=== PATIENT | male | born 1980 | race African-American/Black ===

== ENCOUNTER 2022-09-27 15:13 | Emergency (ER) | payer OTHER, SELFPAY ==
--- NOTE | ~2022-09-27 | XR_ITS ---
EXAMINATION: XR chest 2V Exam Date/Time: 09/27/2022 15:38 DIAMOND SIZER HISTORY: Chest Pain, tightness, congestion Comparison: None available. RESULT: Lines, tubes, and devices: None. Lungs and pleura: Clear. Cardiomediastinal silhouette: Calcified hilar node, otherwise unremarkable. Other: No acute osseous or upper abdominal finding. IMPRESSION: No acute cardiopulmonary process. Reviewed, dictated and finalized at location K. OND SIZER
[2022-09-27 15:15] VITALS: BP 143/80; PULSE 72; RESP 18; TEMP 36.3; O2SAT 99
--- NOTE | 2022-09-27 15:19 | ECG_ITS ---
Measurements Intervals [place] Rate: 71 P: 60 MO: 166 QRS: 30 QRSD: 101 T: 45 QT: 368 QTc: 401 Interpretive Statements SINUS RHYTHM NORMAL ECG NO PREVIOUS ECG AVAILABLE FOR COMPARISON Electronically Signed On 09-27-2022 17:03:43 [employer]IOR [employer] ENGINE[employer] by Salo Burnette M.D.
[2022-09-27 15:36] LABS: Basophils Absolute Auto 0.1 K/mm3 (0.0-0.1); Basophils Percent Auto 0.6 % (0.2-1.2); Eosinophils Absolute Auto 0.3 K/mm3 (0-0.3); Eosinophils Percent Auto 2.9 % (0-4.4); Hematocrit 37.2 % (42.0-52.0); Hemoglobin 12.3 g/dL (14.0-18.0); Immature Granulocyte Absolute 0.02 K/mm3 (0.00-0.031); Immature Granulocyte Percent A 0.2 % (0-0.5); Lymphocytes Percent Auto 43.5 % (18.3-44.2); Mean Corpuscular HGB Conc 33.1 g/dl (32-36); Mean Corpuscular Hemoglobin 29.8 pg (26-34); Mean Corpuscular Volume 90.1 fl (80-100); Mean Platelet Volume 10.3 fl (7.4-10.4); Monocytes Absolute Auto 0.7 K/mm3 (0.1-0.6); Monocytes Percent Auto 7.7 % (2.6-8.5); Neutrophils Percent Auto 45.1 % (45.5-73.1); Platelet Count Result 321 k/mm3 (150-375); Red Blood Count 4.13 M/mm3 (4.6-6.20); Red Cell Distribution Width 14.6 % (11.5-14.5); White Blood Count 8.7 K/mm3 (4.5-10.0)
[2022-09-27 15:46] LABS: Alanine Aminotransferase 25 U/L (6-50); Albumin Level 4.6 g/dL (3.5-5.1); Alkaline Phosphatase 83 U/L (38-126); Anion Gap 5 mmol/L (8-16); Aspartate Amino Transferase 30 U/L (17-59); Bilirubin,Total 0.4 mg/dL (0.2-1.3); Blood Urea Nitrogen 15 mg/dL (9-20); Calcium 9.2 mg/dL (8.4-10.2); Carbon Dioxide 27 mmol/L (22-30); Chloride 105 mmol/L (98-107); Estimated CRCL calculation 119 ml/min; Estimated Glomerular Filt Rate > 60; Glucose 99 mg/dL (65-110); Lipase 91 U/L (23-300); Sodium 137 mmol/L (137-145)
[2022-09-27 15:49] LABS: Prothrombin Time 12.9 Seconds (11.1-14.7)
[2022-09-27 15:50] LABS: Partial Thromboplastin Time 31.8 SECONDS (22.3-36.8)
[2022-09-27 15:58] LABS: Troponin I < 0.012 ng/mL (0.000-0.034)
[2022-09-27 17:36] VITALS: O2SAT 100
--- NOTE | 2022-09-27 18:12 | ED.CHESTPAIN ---
HPI - Chest Pain General Chief Complaint: Chest Pain Stated Complaint: chest tightness Time Seen by Provider: 09/27/22 17:39 History of Present Illness HPI narrative: This is a 42-year-old male who comes into the emergency department for chief complaint of chest tightness ongoing for 3 weeks. Also reports cough, wheezing, shortness of breath. He does note history of asthma as a kid. 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 Also notes some sore throat and malaise. The chest pain is not associated with exertion and described as a tightness. Is associate the pain with cough. Denies fevers, chills, abdominal pain, nausea, vomiting, weakness, hemoptysis, headedness, diaphoresis. Related Data Allergies Allergy/AdvReac Type Severity Reaction Status Date / Time No Known Allergies Allergy Verified 09/27/22 15:18 Review of Systems Review of Systems: CONSTITUTIONAL: Denies fever, chills, or sweats. EYES: Denies visual changes, redness, or discharge. ENT: Denies rhinorrhea, congestion, or otalgia. Endorses sore throat. CARDIOVASCULAR: Endorses chest tightness. Denies palpitations, or edema. RESPIRATORY: Endorses cough and dyspnea. Endorses wheezing. GASTROINTESTINAL: Denies abdominal pain, nausea, vomiting, or diarrhea. GENITOURINARY: Denies dysuria or hematuria. SKIN: Denies rash or itching. MUSCULOSKELETAL: Denies back pain, joint pain, or myalgia. NEUROLOGIC: Denies headache, numbness, dizziness, or weakness. PSYCHIATRIC: Denies anxiety or depression. Exam Narrative: GENERAL: Well-appearing, well-nourished, and in no acute distress. HEAD: Normocephalic, atraumatic. EYES: PERRLA and EOMI. ENT: Nares clear, no rhinorrhea or epistaxis. Mucous membranes moist. Oropharynx without tonsillar hypertrophy exudate or other lesions. Right TM intact. Left TM unable to visualize due to cerumen impaction. NECK: Supple. No adenopathy or masses. CHEST: No respiratory distress. Clear to auscultation. No rales or rhonchi. End expiratory wheezes present bilaterally HEART: Regular rate and rhythm. No murmur heard. Normal peripheral pulses. ABDOMEN: Soft, nontender, nondistended, normal active bowel sounds. EXTREMITIES: Normal range of motion. No edema. SKIN: Warm, dry, no rash. NEURO: Alert and oriented x3. No focal deficits. PSYCH: Normal mood and affect. Course Vital Signs Vital signs: Vital Signs Temperature 97.4 F L 09/27/22 15:15 Pulse Rate 72 09/27/22 15:15 Respiratory Rate 18 09/27/22 15:15 Blood Pressure 143/80 H 09/27/22 15:15 Pulse Oximetry 99 09/27/22 15:15 Oxygen Delivery Room Air 09/27/22 15:15 Temperature 97.4 F L 09/27/22 15:15 Pulse Rate 68 09/27/22 19:20 Respiratory Rate 16 09/27/22 19:20 Blood Pressure 130/89 09/27/22 19:20 Pulse Oximetry 100 09/27/22 19:20 Oxygen Delivery Room Air 09/27/22 17:36 MDM - Chest Pain MDM Narrative Medical decision making narrative: This is a 42-year-old male who presents for chest tightness ongoing for about 3-1/2 weeks. There is no exertional component to the chest pain. Heart score is 1. Lab work-up is grossly unremarkable. Troponin negative. His symptoms are consistent with viral bronchitis. Exam shows bilateral wheezes. He was given a nebulized dose of albuterol which provided some symptomatic relief. Breath sounds were improved after this treatment. ECG shows sinus rhythm with no acute ischemic changes. Chest x-ray shows No acute cardiopulmonary process.. He is PERC negative. Vital stable during the entirety of his visit. States he has a past diagnosis of asthma and has been out of his albuterol inhaler for a long time. We will give him a new prescription for albuterol puffer as well as guaifenesin for cough. Return precautions given for exertional chest pain, and other signs of ACS. Recommended that he quit smoking. Supporti
[2022-09-27 18:25] VITALS: PULSE 65; RESP 16
[2022-09-27] MEDS: ALBUTEROL SULFATE NEB 2.5 MG/3 ML INH INHALATION (18:25)
[2022-09-27 18:31] VITALS: PULSE 60; RESP 16
--- NOTE | 2022-09-27 19:14 | PC.NURSE ---
1909 Assumed pt care from KAYLENE Marinelli
[2022-09-27 19:20] VITALS: BP 130/89; PULSE 68; RESP 16; O2SAT 100
== END 2022-09-27 19:20 | disposition home or self-care (01) ==
PROVIDERS: Emergency Medicine; Emergency Provider Physician Assistant
DX: J45.909 Unspecified asthma, uncomplicated (principal)
CPT/HCPCS: 36415; 71046; 80053; 83690; 84484; 85025; 85610; 85730; 93005; 94640; 99284

== ENCOUNTER 2024-06-11 17:14 | Emergency (ER) | payer OTHER, SELFPAY ==
[2024-06-11 17:17] VITALS: BP 139/89; PULSE 93; RESP 19; TEMP 36.4; O2SAT 97
--- NOTE | 2024-06-11 17:28 | ED.BACK ---
HPI - Back Pain/Injury General Chief Complaint: Back Pain/Injury Stated Complaint: lower back pain Time Seen by Provider: 06/11/24 17:28 Source: patient Mode of arrival: ambulatory History of Present Illness HPI Narrative: 44 YEARS OLD MALE DROVE HIMSELF TO THE EMERGENCY ROOM COMPLAINING OF SEVERE SHARP STABBING PAIN ACROSS THE LOWER BACK WITH NUMBNESS RADIATING TO LOWER EXTREMITY BILATERALLY. PATIENT DENIES BOWEL DYSFUNCTION, BLADDER DYSFUNCTION, ALTERED SENSATION, FOCAL WEAKNESS, OR SADDLE NUMBNESS, PATIENT DENIES ANY FEVER, CHILLS, OR TRAUMA PATIENT IS STATUS POST LOWER BACK SURGERY 12 DAYS AGO AT [facility] Related Data Allergies Allergy/AdvReac Type Severity Reaction Status Date / Time No Known Allergies Allergy Verified 06/11/24 17:30 Review of Systems Review of Systems: All systems reviewed & are unremarkable except as noted in HPI and below Exam Narrative: GENERAL APPEARANCE: WELL-DEVELOPED, WELL-NOURISHED SKIN: NORMAL COLOR HEAD: NORMOCEPHALIC, NONTRAUMATIC EYES: CLEAR CONJUNCTIVA ENT: OROPHARYNX NORMAL, EARS NORMAL, NOSE NORMAL NECK: SUPPLE, NONTENDER CHEST AND RESPIRATORY: AIRWAY PATENT, NO RESPIRATORY DISTRESS, NO ACCESSORY MUSCLE USE HEART: REGULAR RATE/RHYTHM ABDOMEN: SOFT, NONTENDER, NO ORGANOMEGALY, QUIET BOWEL SOUNDS VASCULAR: NORMAL PERIPHERAL PULSES, NORMAL CAPILLARY REFILL. MUSCULOSKELETAL: NORMAL RANGE OF MOTION, NONTENDER BACK NEUROLOGIC: ALERT AND ORIENTED ?3, POSITIVE STRAIGHT LEG RAISING TEST BILATERALLY MORE SIGNIFICANT ON THE RIGHT LOWER EXTREMITY Course Consultations Consultation #1: DR CHACON [facility] OF [facility] WHO ACCEPTED PATIENT TRANSFER Date: 06/11/24 Time: 18:50 Vital Signs Vital signs: Vital Signs Temperature 36.4 C 06/11/24 17:17 Pulse Rate 93 06/11/24 17:17 Respiratory Rate 19 06/11/24 17:17 Blood Pressure 139/89 06/11/24 17:17 Pulse Oximetry 97 06/11/24 17:17 Temperature 36.4 C 06/11/24 17:17 Pulse Rate 93 06/11/24 17:17 Respiratory Rate 19 06/11/24 17:17 Blood Pressure 139/89 06/11/24 17:17 Pulse Oximetry 97 06/11/24 17:17 MDM - Back Pain/Injury MDM Narrative Medical decision making narrative: PATIENT STATUS POST LOWER BACK SURGERY 12 DAYS AGO, COMPLAINING OF NEW SHARP STABBING PAIN STARTED SMOKING PIPE LINER AND NEW NUMBNESS OF THE LEFT LOWER EXTREMITY. HE IS TELLING ME THAT HE USED TO HAVE NUMBNESS OF THE RIGHT LOWER EXTREMITY PRIOR TO SURGERY. TODAY NUMBNESS IS BILATERALLY. VITAL SIGNS ARE STABLE PHYSICAL EXAMINATION CONSISTENT WITH BILATERAL LUMBAR RADICULOPATHY DIFFERENTIAL DIAGNOSIS INCLUDE BULGING DISC, HERNIATED DISC, EDEMA SECONDARY TO SURGERY PATIENT RECEIVED 10 MG OF DECADRON IV, 0.5 MG OF DILAUDID IV, 4 MG ZOFRAN IV PRIOR TO TRANSFER. TRANSFERRED TO [facility] ED, DISCUSSED WITH THE EMERGENCY ROOM PHYSICIAN DR. CHACON Differential Diagnosis Differential diagnosis: Likely other ( ABOVE) Critical Care Time Critical Care Time Critical Care Time: No Discharge Plan Discharge Clinical Impression: Low back pain radiating to left lower extremity, Bilateral lumbar radiculopathy Patient Disposition: Acute Care Hospital Condition: Stable Instructions: Lumbar Radiculopathy (ED) Additional Instructions: TRANSFERRED TO [facility] Prescriptions: No Action guaifenesin 200 mg tablet 200 mg PO QID PRN (Reason: congestion) Qty: 30 0RF albuterol sulfate 90 mcg/actuation HFA aerosol inhaler 2 puff inhalation QID PRN (Reason: shortness of breath or wheezing) Qty: 6.7 0RF Follow-up/Referrals: PHYSICIAN,CAN CAPPER [Non-Staff] -
[2024-06-11] MEDS: dexAMETHasone SOD PHOS INJ 10 MG/ML 1 ML VIAL IV PUSH (17:48)
[2024-06-11] MEDS: HYDROmorphone HCL INJ (*CRX) 1 MG/ML SYR 0.5 MG IV PUSH (18:42)
[2024-06-11] MEDS: ONDANSETRON INJ 4 MG/2 ML VIAL IV PUSH (18:42)
[2024-06-11 20:17] VITALS: BP 141/83; PULSE 88; RESP 18; O2SAT 99
== END 2024-06-11 20:21 | disposition short-term general hospital (02) ==
PROVIDERS: Emergency Provider Emergency Medicine
DX: M54.16 Radiculopathy, lumbar region (principal)
CPT/HCPCS: 96374; 96375; 99285; J1100; J1171; J2405

== ENCOUNTER 2024-09-30 22:57 | Emergency (ER) | payer SELFPAY ==
--- OUTSIDE RECORDS SUMMARY | 2024-09-30 22:59 | XMS_ITS ---
Author Organization [facility] [place] Address [address] [place] [address] Care Team Providers Care Template Reproduction Technician Name Role Phone Joe Tillman Unavailable [phone] ALLERGIES No Known Allergies REASON FOR VISIT WC--OK PER Sabi Dorantes/ Dr. Ezra Boateng/ SNAKER and RIGHT L5 SNRI (s) MEDICATIONS Medication SIG (Take, Route, Frequency, Duration) Notes Start Date End Date Status Meloxicam 7.5 MG TAKE 1 TABLET BY AYO TH EVERY DAY Oral for 30 Days Activ e Gabapentin 100 MG TAKE 1 TABLET BY AYO TH 3 TIMES A DAY Oral for 30 Days Active Naproxen 500 MG Oral for 10 Days Active Cyclobenzaprine HCl 10 MG TAKE 1 TABLET BY MOUTH 3 TIMES A DAY Oral for 30 Days Active SOCIAL HISTORY Tobacco Use: Social History Observation Description Date Details (start date - stop date) Current Smoker NA - NA Sex Assigned At : Social History Observation Description Sex Assigned At Unknown Tobacco Use/Smoking Question Answer Notes Are you a current smoker PROBLEMS Problem Type ICD Code Onset Dates Problem Status W/U Status Risk SNOMED Code Notes Problem Lumbosacral radiculopathy (M54.17) Active confirmed Lumbosacral radiculopathy (5483505) Problem Herniated nucleus pulposus, L5-S1 (M51.27) Active confirmed Displacement of lumbar intervertebral disc without myelopathy (00624388) VITAL SIGNS Temperature 98.1 degrees Fahrenheit 05/05/20 24 Blood pressure systolic 125 mm Hg 05/05/20 24 Blood pressure diastolic 84 mm Hg 024 Heart Rate 90 /min 05/05/2024 Respiratory Rate 18 /min 05/05/2024 Height 73 in 05/05/2024 Weight 220 lbs 05/05/2024 BMI 29.02 kg/m2 05/05/2024 Encounters Encounter Location Date Provider Diagnosis [facility] [address] [address] 05/05/2024 Joe Tillman Lumbosacral radiculopathy M54.17 and Herniated nucleus pulposus, L5-S1 M51.27 ASSESSMENTS Encounter Date Diagnosis Assessment Notes Treatment Notes Treatment Clinical Notes Section Notes 05/05/2024 Lumbosacral radiculopathy (ICD-10 - M54.17) Impression1. Low back pain radiating right lower extremity, L5 and possibly overlapping S1 pattern representing lumbosacral radiculopathy.2. Right L5/S1 paracentral disc protrusion/extru amanda.3. Work-related injury 04/01/2024.Plan1. Proceed with right L5 selective nerve root injection with fluoroscopy. He does not request sedation.2. Patient expects to follow-up on 05/10/[address] Ezra Boateng. I asked that he keep a pain diary regarding his response to today's procedure.3. If future injections are requested, I would strongly recommend IV sedation. Pain scores on numeric scale:Preinje ction: 03/19Postinjec tion: 01/1705/05/2024 Herniated nucleus pulposus, L5-S1 (ICD-10 - M51.27) PLAN OF TREATMENT Treatment Notes Assessment Notes Lumbosacral radiculopathy Impression1. L ow back pain radiating right lower extremity, L5 and possibly overlapping S1 pattern representing lumbosacral radiculopathy.2. Right L5/S1 paracentral disc protrusion/extrusion.3. Work-related injury 04/01/2024.Plan1. Proceed with right L5 selective nerve root injection with fluoroscopy. He does not request sedation.2. Patient expects to follow-up on 05/10/[address] Ezra Boateng. I asked that he keep a pain diary regarding his response to today's procedure.3. If future injections are requested, I would strongly recommend IV sedation. MEDICATIONS ADMINISTERED Medication Instructions Date of Administration Dosage Notes RIGHT L5 SNRI with fluoroscopy 05/05/2024 Progress Notes * Ricardo NEGRON:1979 (44 yo M)Acc No.[id number]:05/05/2024 Progress Notes Patient: Ricardo NEGRON Provider: Joe Tillman DO :1980 Age:44 Y Sex:Male Date:05/05/2024 Address:[address] [place], [place] [address] Subjective: * Chief Complaints: * WC--OK PER Sabi Dorantes/ Dr. Ezra Boateng/ SNAKER and RIGHT L5 SNRI (s) * HPI: New Patient Questionnaire: Pain Evaluation The patient completed a questionnaire that best described the pain. This form was reviewed and the responses included in this note. When did the pain first begin? days ago. What caused the pain? work injury. Where does the pain start? lower back. Where does the pain seem to travel? down leg. On scale of 1 to 10, what is the pain like today? 8. On a scale of 1 to 10, what is your least pain? 6. On a scale of 1 to 10, what is your worst pain? 10. On a scale of 1 to 10, what is your overall average pain? 10. In your words, what best describes your pain? sharp. The pain is best described as: severe. Which word best describes the timing of the pain? constant. As times goes by, is the pain getting? about the same. Which symptoms is the pain associated with? numbness, tingling. What makes the pain worse? walking, standing. Which factors seem to relieve the pain? lying down. What previous treatments have you tried? heat. Have you ever tried Physical Therapy? no. List past medications taken for your pain problem Meloxicam, gabapentin,cyclonenzaprine,morphine,prednisone,naproxen. Oswestry Score 20. This 44-year-old black male presents to the pain clinic today upon referral from Dr. Ezra Boateng, his orthopedic spine surgical technologist, requesting right L5 selective nerve root injection. This gentleman sustained a work-related injury on 04/01/2024 when he states he was picking up boxes and twisted his low back with a pop in the low back area. He is currently off work. He describes constant and severe predominantly sharp but diffuse low back pain radiating to the posterior lateral right thigh, calf with frequent paresthesias plantar aspect of his right foot. He denies foot drop, neurogenic bowel/bladder symptoms. He has not undergone previous spinal surgery. Physical therapy is ongoing with modest improvement. Medical history was reviewed. He denies known drug allergies. He smokes tobacco, less than 1/2 pack cigarettes per day. Zoey barnard dinorah M [place] lumbar spine 04/04/2024 revealed termination of spinal cord L1/2 with normal distal cord signal. 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 L5/S1 segment reveals right paracentral disc protrusion deforming thecal sac with moderate bilateral foraminal encroachment and mild central canal stenosis. * ROS: Pain Management ROS: Patient Reports: GENERAL: disturbed sleeping habits. Patient Denies: GENERAL: weight or appetite changes, fever, chills. Patient Denies: EYE: eye infections, blurred vision, double vision, blindness. Patient Denies: ENT: hearing loss, inflamed nose, hoarseness, sore throat, bloody nose, sinusitis, dizziness. Patient Denies: CARDIAC: chest pains, heart murmur, skipped beats. Patient Denies: GENITOURINARY bladder incontinence, difficulty urinating. Patient Denies: RESPIRATORY cough, coughing up blood, wheezing, shortness of breath, difficulty breathing on exertion. Patient Denies: GI constipation, diarrhea, blood in stools, nausea/vomiting. Patient Reports: NEUROLOGIC numbness. Patient Denies: NEUROLOGIC headaches, dizziness, falling, seizures, tremor. Patient Denies: ENDOCRINE hot and cold flashes. Patient Denies: HEMATOLOGICAL easy bruisability, difficulty in clotting the blood. Patient Denies: JOINTS joint or muscle limitation and pain other than the present illness. Patient Reports: PSYCHIATRIC depression. Patient Denies: PSYCHIATRIC: mood swings, anxiety. Patient Denies: SKIN lacerations, abrasions, postules, nodules, tumors, breast changes. * Medical History: * Surgical History: No Surgical History documented. * Hospitalization/Major Diagno stic Procedure: No Hospitalization History. * Family History: Father: . * Social History: Tobacco Use: Tobacco Use/Smoking Are you a current smoker Occupation Status: Employment Status: Employed. Marital Status: Marital Status: . Workmen's Compensation: Work Comp Status: Being treated under Workmen's Compensation, Not Receiving Disability benefits, Not involved in legal action related to pain problem or considering it in the future. Number of Children: Number of children: 4. Education: How far did you get in your education?: high school. Drugs/Alcohol: Drugs Have you used drugs other than those for medical reasons in the past 12 months? No Caffeine Intake: none Do you smoke marijuana?: Denies. Do you drink alcohol?: Quit. * Medications: TakingGabapentin 100 MG Capsule TAKE 1 TABLET BY MOUTH 3 TIMES A DAY Oral Meloxicam 7.5 MG Tablet TAKE 1 TABLET BY MOUTH EVERY DAY Oral Cyclobenzaprine HCl 10 MG Tablet TAKE 1 TABLET BY MOUTH 3 TIMES A DAY Oral Naproxen 500 MG Tablet Oral Medication List reviewed and reconciled with the patientTaking Gabapentin 100 MG Capsule TAKE 1 TABLET BY MOUTH 3 TIMES A DAY Oral Taking Meloxicam 7.5 MG Tablet TAKE 1 TABLET BY MOUTH EVERY DAY Oral Taking Cyclobenzaprine HCl 10 MG Tablet TAKE 1 TABLET BY MOUTH 3 TIMES A DAY Oral Taking Naproxen 500 MG Tablet Oral Medication List reviewed and reconciled with the patient * Allergies: N.K.D.A.no[Allergies Verified] Objective: * Vitals: Temp:98.1F, HR:90/min, BP:125/84mm Hg, Wt:220lbs, BMI:29.02Index, Ht: 73 in, RR:18/min, Ht-cm: 185.42 cm, Wt-k.79 kg. * Examination: DGS: New Patient Exam: General The patient appeared in no distress at rest. The patient is alert and oriented to time, person, and place.. Respiratory Coarse breath sounds noted bilateral posterior lung marsh, especially bases, likely reflecting chronic tobacco use. No active wheezing or consolidation.. Cardiovascular Regular rate and rhythm without murmur. No peripheral edema noted.. Gastrointestinal Abdomen is soft and nontender without obvious organomegaly or masses. Musculoskeletal Antalgic gait noted. Patient had discomfort transitioning from seated to standing position. He reported more pain with trunk flexion 45 degrees than with extension 15 degrees. In seated position, Arpan's and Wander grossly unremarkable bilaterally.? He was tender across lower lumbar paravertebral areas without spasm. Step-offs were not detected with palpation over lumbar and lumbosacral spinous processes.. Neurologic Patient does not describe discrete areas of persistent sensory loss in the lower extremities but does describe frequently occurring paresthesias plantar aspect of his right foot. Sciatic stretch sign equivocally positive right side 45 degrees. DTRs trace bilateral patella and trace to 1 bilateral Achilles but symmetrical. Bilateral ankle dorsiflexion and plantarflexion against resistance appear grossly normal. Specific bilateral EHL power against resistance grossly normal. He does not describe neurogenic bowel/bladder symptoms.. Assessment: * Assessment: 1. Lumbosacral radiculopathy - M54.17 (Primary) 2. Herniated nucleus pulposus, L5-S1 - M51.27 Plan: * Treatment: * Procedures: Right L5 selective nerve root injection utilizing L5/S1 transforaminal approach with fluoroscopy After signing consent, patient was taken to procedure area where he was placed prone on fluoroscopically compatible table. Monitors were applied consisting of automatic blood pressure cuff and pulse oximeter. No sedation was administered and no IV established. Lumbar area was prepped with Betadine solution allowed to dry on the skin. Sterile drapes were applied and aseptic technique observed. Using right oblique fluoroscopic imaging, L5 pedicle was identified and overlying skin anesthetized with 0.5% preservative-free lidocaine via 27-gauge needle. A 22- gauge 5 inch slightly curved spinal needle was directed beneath the right L5 pedicle. Injection of 1 mL Omnipaque 240 revealed excellent outline of the exiting right L5 nerve root emerging beneath its pedicle with some degree of contrast extending medial to the pedicle itself indicating regional epidural distribution. This was followed by injection of 3 mL volume containing 0.5% preservative-free lidocaine with 80 mg preservative-free Depo-Medrol. Needle was withdrawn tip intact. No complications encountered. Prep was wiped from the skin and latex free Band-Aid placed over puncture site. He was transported to recovery area where he was observed for short while before being discharged in satisfactory condition. He noted only modest improvement at the time of discharge. Please refer to clinical notes for specific pain scores. * Therapeutic Injections: RIGHT L5 SNRI with fluoroscopy given by Joe Tillman DO * Procedure Codes: RIGHT L5 SNRI with fluoroscopy * Preventive Medicine: PQRS: PQRS G8417: BMI above normal (overweight) and f/u plan documented., G8428: Current medication with name, dosage, frequency, or route NOT documented, not given - performance NOT met., 4004F:Patient screened for tobacco use and identified as a user and received intervention.. Oswestry Score: Oswestry Score 20. * Images: * Sign off status: Completed true * Provider: Joe Tillman DO Date: 05/05/2024 History and Physical Notes * HPI (History of Present Illness) Category Sub-Category Detail Notes Category Not es New Patient Questionnaire When did the pain first begin? days ago This 44-year-old black male presents to the pain clinic today upon referral from Dr. Ezra Boateng, his orthopedic spine surgical technologist, requesting right L5 selective nerve root injection. This gentleman sustained a work-related injury on 04/01/2024 when he states he was picking up boxes and twisted his low back with a pop in the low back area. He is currently off work. He describes constant and severe predominantly sharp but diffuse low back pain radiating to the posterior lateral right thigh, calf with frequent paresthesias plantar aspect of his right foot. He denies foot drop, neurogenic bowel/bladder symptoms. He has not undergone previous spinal surgery. Physical therapy is ongoing with modest improvement. Medical history was reviewed. He denies known drug allergies. He smokes tobacco, less than 1/2 pack cigarettes per day. Imaging study MRI lumbar spine 04/04/2024 revealed termination of spinal cord L1/2 with normal distal cord signal. 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 L5/S1 segment reveals right paracentral disc protrusion deforming thecal sac with moderate bilateral foraminal encroachment and mild central canal stenosis. What caused the pain? work injury Where does the pain start? lower back Where does the pain seem to travel? down leg On scale of 1 to 10, what is the pain like today? 8 On a scale of 1 to 10, what is your least pain? 6 On a scale of 1 to 10, what is your worst pain? 10 On a scale of 1 to 10, what is your overall average pain? 10 In your words, what best rainer cribes your pain? sharp The pain is best described as: severe Which word best describes th e timing of the pain? constant As times goes by, is the pain getting? a bout the same Which symptoms is the pain a ssociated with? numbness, tingling What makes the pain worse? walking, lorene ding Which factors seem to relieve the pain? lying down What previous treatments have you tried? heat Have you ever tried Physical Therapy? no List past medications taken for your pain problem Meloxicam, gabapentin,cyclonenzaprine,morphine,prednisone,napro xen Pain Evaluation The patient complete d a questionnaire that best described the pain. This form was reviewed and the responses included in this note Oswestry Score 20 Examination Category Sub-Category Detail Notes Category Not es DGS: New Patient Exam General The patien t appeared in no distress at rest. The patient is alert and oriented to time, person, and place. Respiratory Coarse breath sounds noted bilateral posterior lung amrsh, especially bases, likely reflecting chronic tobacco use. No active wheezing or consolidation. Cardiovascular Regular rate and rhy thm without murmur. No peripheral edema noted. Gastrointestinal Abdomen is soft and nontender without obvious organomegaly or masses Musculoskeletal Antalgic gait noted. Patient had discomfort transitioning from seated to standing position. He reported more pain with trunk flexion 45 degrees than with extension 15 degrees. In seated position, Arpan's and Wander grossly unremarkable bilaterally. He was tender across lower lumbar paravertebral areas without spasm. Step-offs were not detected with palpation over lumbar and lumbosacral spinous processes. Neurologic Patient does not rainer cribe discrete areas of persistent sensory loss in the lower extremities but does describe frequently occurring paresthesias plantar aspect of his right foot. Sciatic stretch sign equivocally positive right side 45 degrees. DTRs trace bilateral patella and trace to 1 bilateral Achilles but symmetrical. Bilateral ankle dorsiflexion and plantarflexion against resistance appear grossly normal. Specific bilateral EHL power against resistance grossly normal. He does not describe neurogenic bowel/bladder symptoms.
--- OUTSIDE RECORDS SUMMARY | 2024-09-30 22:59 | XMS_ITS | Clinical Summary ---
Author Organization [facility] [address] Address [address] [facility] 5th [place] [address] Care Team Providers Care Start Up Specialist Name Role Phone Rick Willams MD Primary Care Provider [phone] Allergies No known active allergies Medications cyclobenzaprine (FLEXERIL) 10 mg tablet Take 1 tablet (10 mg total) by mouth 3 (three) times a day Active gabapentin (NEURONTIN) 100 mg capsule Take 1 capsule (100 mg total) by mouth 3 (three) times a day 04/19/2024 Active meloxicam (MOBIC) 7.5 mg tablet Take 1 tablet (7.5 mg total) by mouth daily 04/19/2024 Active atorvastatin (LIPITOR) 20 mg tablet Take 1 tablet (20 mg total) by mouth daily 30 tablet 2 04/26/2024 5 Active Active Problems Problem Noted Date Diagnosed Date Encounter for medical examination to establish c are 04/25/2024 Assessment & Plan (04/25/2024 10:48 AM CDT): A(n) initial well visit to establish care has been performed today. Ricardo Falcon is not up to date on screening tests. He is in need of hep B, C, Colon cancer screening, and Cholesterol screening. He is not up to date on needed preventative vaccinations; He is in need of Influenza. We discussed healthy lifestyle habits, educational material has been given. Medications reviewed, changes documented as per the medical record and discussed with patient along with risks vs benefits. Specific topics reviewed: drugs, ETOH, and tobacco, importance of regular dental care, importance of regular exercise, importance of varied diet, limit TV, media violence, minimize junk food, and seat belts. Return in 1 year Foraminal stenosis of lumbosacral region 024 Overview (04/25/2024): 04/04/2024: 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 revealed moderate bilateral L5-S1 neural foraminal stenosis Prediabetes 04/04/2024 Protruded lumbar disc 04/04/2024 Overview (04/25/2024): 04/04/2024: 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 revealed RIGHT central disc protrusion at L5-S1 with moderate ventral thecal sac deformity and overall mild thecal sac stenosis Acute bilateral low back pain with bilateral sci atica 04/03/2024 Bradycardia 04/03/2024 L1 vertebral fracture (CMS/HCC) 04/03/2024 Overview (04/25/2024): 04/04/2024: 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 Family History Medical History Relation Name Comments No Known Problems Brother 1 No Known Problems Brother 2 No Known Problems Brother 3 No Known Problems Father in MV A at 32y No Known Problems Maternal Grandfather No Known Problems Maternal Grandmother Hypertension Mother No Known Problems Paternal Grandfather No Known Problems Paternal Grandmother No Known Problems Sister Relation Name Status Comments Brother 1 Alive Brother 2 Alive Brother 3 Alive Father Maternal Grandfather Maternal Grandmother Mother Alive Paternal Grandfather Paternal Grandmother Sister Alive Social History Tobacco Use Types Packs/Day Years Used Date Smoking Tobacco: Every Day Cigarettes 0.3 17.1 Started: 2007 AUDIT-C Answer Date Recorded Q1: How often do you have a drink containing alcohol? Never 04/25/2024 Q2: How many drinks containi ng alcohol do you have on a typical day when you are drinking? Patient does not drink Q3: How often do you have si x or more drinks on one occasion? 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 Not on file Not on file Not on file Obstetrics History Last Filed Vital Signs Vital Sign Reading Time Taken Comments Blood Pressure 120/80 04/25/2024 10:18 AM CDT Pulse 78 04/25/2024 10:18 AM CDT Temperature 36.2 C (97.1 F) 04/25/2024 10:18 AM CDT Respiratory Rate 16 04/25/2024 10:18 AM CDT Oxygen Saturation 98% 04/25/2024 10:18 AM CDT Inhaled Oxygen Concentration - - Weight 101.6 kg (224 lb) 04/25/2024 10:18 AM CDT Height 185.4 cm (6' 1 ) 04/25/2024 10:18 AM CDT Body Mass Index 29.55 04/25/2024 10:18 AM CDT Plan of Treatment Health Maintenance Due Date Last Done Comments Colon Cancer Screening-Colonoscopy 1980 Influenza Vaccine (#1) 2024 Pneumococcal vaccine <65 (1 of 2 - PCV) 04/10/2025 Postponed from 02/11 (Patient declined, but will receive in the future) Depression Screening 04/25/2025 04/25/2024 Regular Well Visit/Exam 18-64 04/25/2025 04/25/2024 DTaP/Tdap/Td Vaccine (1 - Tdap) 08/09/2025 Postponed from 1989 (Insurance / Financial) Prostate Cancer Screening-PSA 04/25/2026 04/25/2024 Hepatitis B Screening Completed 04/25/2024 Hepatitis C Screening Completed 04/25/2024 HPV Vaccines Aged Out No longer eligi ble based on patient's age to complete this topic Procedures Procedure Name Priority Date/Time Associated Diagnosis Comments HEPATITIS C ANTIBODY Routine 04/25/2024 11:00 AM CDT Need for hepatitis C screening test PSA SCREEN Routine 04/25/2024 11:00 AM CDT Screening PSA (prostate specific antigen) from Last 3 Months or Most Recently Relevant to Health Maintenance Results * PSA screen (04/25/2024 11:00 AM CDT) PSA-Total 0.62 ng/mL Comment: Interpretive Data AGE SEX REFERENCE INTERVAL 0 minutes-150 years Female None 0 minutes-49 years Male None 50-59 years Male 0-3.90 60-69 years Male 0-5.40 70-79 years Male 0-6.20 80-150 years Male 0-6.20 The Shadi PSA Total assay procedure was used. Results from different manufacturers or methods may not be comparable. Serial testing should be performed using the same method. Current interpretive data last revised 21. Blood 04/25/2024 11:0 0 AM CDT 04/25/2024 2:52 PM CDT Rick Willams MD LAB BLOOD ORDERABLES Final Result Performing Organization Address [facility] de Phone Number SAEEDANAND [address] [place], [place] [phone] * Hepatitis C antibody Blood (04/25/2024 11:00 AM CDT) Hep C Ab Nonreactive Nonreactive Comment: Interpretive Data Nonreactive: Antibodies to HCV not detected. Does NOT exclude the possibility of recent exposure to HCV. Equivocal: Equivocal for HCV antibodies. Supplemental molecular testing will be automatically performed to determine infection status in accordance with current CDC screening recommendations. Reactive: Positive for HCV antibodies. This may represent current or past HCV infection. Supplemental molecular testing will be automatically performed to determine current infection status in accordance with current CDC screening recommendations. Interpretive data was last revised on 2019. Blood 04/25/2024 11:0 0 AM CDT 04/25/2024 2:52 PM CDT Rick Willams MD LAB MICROBIOLOGY - GENERAL ORDERABLES Final Result Performing Organization Address [facility] Co de Phone Number JARRED MELLO [address] [place] [address] from Last 3 Months or Most Recently Relevant to Health Maintenance Insurance [facility] CIGNA Care Teams Start Up Specialist Relationship Specialty Start Date End Date Rick Willams MD [address] [place] [address] PCP - General Family Medicine 04/25/24
--- OUTSIDE RECORDS SUMMARY | 2024-09-30 22:59 | XMS_ITS | Encounter Summary ---
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
--- OUTSIDE RECORDS SUMMARY | 2024-09-30 22:59 | XMS_ITS | Clinical Summary ---
Author Organization [facility] Address [address] [place] [address] Phone Care Team Providers Care Lines Tender Name Role Phone Unavailable Primary Care Provider Unavailabl e Allergies No known active allergies Medications morphine (MS IR) 15 mg tabletIndicatio ns:Sciatica, right side Take 0.5 Tablet (7.5 mg) by mouth every 4 hours as needed for Pain. Max Daily Amount: 3 tablets 10 Tablet 04/01/2024 7:41 PM CDT 04/01/2024 Active cyclobenzaprine (FLEXERIL) 10 mg tablet Take 1 Tablet (10 mg) by mouth 3 times daily as needed for Spasm. 15 Tablet 04/01/2024 7:41 PM CDT 04/01/2024 Active naproxen (NAPROSYN) 500 mg tablet Take 1 Tablet (500 mg) by mouth 2 times daily as needed for Pain, Moderate. 20 Tablet 1 04/01/2024 7:41 PM CDT 04/01/2024 Active Active Problems Problem Noted Date Diagnosed Date Protruded lumbar disc 04/04/2024 Overview (04/04/2024): 04/04/2024: 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 revealed RIGHT central disc protrusion at L5-S1 with moderate ventral thecal sac deformity and overall mild thecal sac stenosis Foraminal stenosis of lumbosacral region 024 Overview (04/04/2024): 04/04/2024: 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 revealed moderate bilateral L5-S1 neural foraminal stenosis Prediabetes 04/04/2024 Bradycardia 04/03/2024 Acute bilateral low back pain with bilateral sci atica 04/03/2024 L1 vertebral fracture 04/03/2024 Overview (04/04/2024): 04/04/2024: 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 Encounters Date Type Department Care Team Description 09/13/2024 External Device Data [facility] ABSTRACTION Provider, Abstract 09/13/2024 External Device Data [facility] ABSTRACTION Provider, Abstract 09/13/2024 External Device Data [facility] ABSTRACTION Provider, Abstract 09/01/2024 External Device Data [facility] Provider, Abstract 08/23/2024 External Device Data [facility] [place]STRACTION Provider, Abstract 08/09/2024 External Device Data [facility] [place]STRACTION Provider, Abstract 07/19/2024 External Device Data [facility] [place]STRACTION Provider, Abstract 07/12/2024 External Device Data [facility] ABSTRACTION Provider, Abstract from Last 3 Months Family History Medical History Relation Name Comments Diabetes Other Relation Name Status Comments Other Social History Tobacco Use Types Packs/Day Years Used Date Smoking Tobacco: Never Smokeless Tobacco: Never Tobacco Cessation:Counseling Given: No Alcohol Use Standard Drinks/Week Comments Not Currently 0 (1 standard drink = 0.6 oz pur e alcohol) Feeling Safe Answer Date Recorded Are you in a relationship wi th someone who hurts you emotionally and/or physically? No 04/03/2024 Food Insecurity Answer Date Recorded Social/Environmental Concerns No concerns Transportation Needs Answer Date Record ed Social/Environmental Concerns No concerns Housing Stability Answer Date Recorded Social/Environmental Concerns No concerns Utility Needs Answer Date Recorded Social/Environmental Concerns No concerns Sex and Gender Information Value Date Recorded Sex Assigned at Not on file Legal Sex Male 3:05 PM CDT Gender Identity Not on file Sexual Orientation Not on file Last Filed Vital Signs Vital Sign Reading Time Taken Comments Blood Pressure 111/63 04/05/2024 4:28 AM CDT Pulse 95 04/04/2024 1:57 PM CDT Temperature 36.7 C (98 F) 04/05/2024 4:28 AM CDT Respiratory Rate 16 04/05/2024 4:28 AM CDT Oxygen Saturation 95% 04/05/2024 4:28 AM CDT Inhaled Oxygen Concentration - - Weight 99.8 kg (220 lb) 04/03/2024 12:10 PM CDT Height 185.4 cm (6' 1 ) 04/03/2024 7:28 AM CDT Body Mass Index 29.03 04/03/2024 7:28 AM CDT Plan of Treatment Upcoming Encounters Date Type Department Care Team (Late st Contact Info) Description 10/05/2024 4:45 PM WIRE DRAWING MACHINE OPERATOR Ancillary Procedure [facility] [address] [place] [address] Raiza Boateng, DO [address] [place] [address] Health Maintenance Due Date Last Done Comments DTAP/TDAP/TD VACCINES (1 - Tdap) 1997 HEPATITIS B VACCINES (1 of 3 - 19+ 3-dose series) 1997 COLORECTAL SCREENING 2023 Colorectal Cancer Screening 2023 FIT-DNA Q 3 years 2023 FIT/FOBT Q 1 year 2023 Flex Sig/CT Colonography Q 5 years 2023 INFLUENZA VACCINE (#1) 2024 Pre-Diabetes and Diabetes Screening 04/03/2027 04/03/2024 HPV VACCINES Aged Out No longer eligi ble based on patient's age to complete this topic Procedures Procedure Name Priority Date/Time Associated Diagnosis Comments HEMOGLOBIN A1C Routine 04/03/2024 10:34 AM CDT from Last 3 Months or Most Recently Relevant to Health Maintenance Results * (ABNORMAL) HEMOGLOBIN A1C (04/03/2024 10:34 AM CDT) HEMOGLOBIN A1C 6.1(H) <5.7 % 04/04/2024 9:40 AM CDT [facility] EST. AVG GLUCOSE, A1C 128 mg/dL 04/04/2024 9:40 AM CDT [facility] Blood Venipuncture / Unknown 04/03/2024 10:34 AM CDT 04/03/2024 10:41 AM CDT Narrative [facility] [employer] [facility] - 04/04/2024 9:40 AM CDT HGB A1C INTERPRETATION NORMAL: <5.7% PRE-DIABETES: 5.7 - 6.4% DIABETES: 6.5% OR GREATER us Rabia Genevieve TRAPEZE PERFORMER CHEMISTRY ORDERABLES Final R esult [facility] [employer] [facility] CLOLGA# [id number] [address] [place] [id number] from Last 3 Months or Most Recently Relevant to Health Maintenance Insurance [employer] Commercial RX [employer] RX Member Subscriber Plan / Payer (Ef fective for All Dates) Name:Ricardo Falcon Relation to Subscriber:Self Name:Ricardo Falcon Subscriber ID:Not on file Payer ID:Not on file Type:RX Commercial Address: [address] [employer] Advance Directives For more information, please contact: [phone] * Full Code (Latest Code Status on File) Date Activated Date Inactivated Comments 04/03/2024 1:34 PM 04/05/2024 1:43 PM
--- OUTSIDE RECORDS SUMMARY | 2024-09-30 22:59 | XMS_ITS | Referral Summary ---
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 Not on file Not on file Last Filed Vital Signs [...] 04/25/2024 10:18 AM CDT Plan of Treatment Not on file Procedures Procedure Name Priority Date/Time Associated Diagnosis [...] 0 AM CDT 04/25/2024 2:52 PM CDT us Rick Willams MD LAB BLOOD ORDERABLES Final Result JARRED MELLO [address] Department [place] [address] * Hepatitis C antibody Blood (04/25/2024 11:00 [...] LAB MICROBIOLOGY - GENERAL ORDERABLES Final Result [address] Department [place] [address] from Last 3 Months or Most Recently Relevant to Health Maintenance Insurance [facility] [place] [address] [place] [address] Care Teams Credit Verification Clerk Relationship Specialty Start Date End Date Rick Willams MD [facility] [place] [address] PCP - General Family Medicine 04/25/24
--- OUTSIDE RECORDS SUMMARY | 2024-09-30 22:59 | XMS_ITS | Patient Health Record ---
Author Organization [facility] Address [address] [place] [address] Care Team Providers Care Bed Teacher Name Role Phone Joe Tillman Unavailable [phone] ALLERGIES No Known Allergies REASON FOR REFERRAL No Information MEDICATIONS Medication SIG (Take, Route, Frequency, Duration) [...] W/U Status Risk SNOMED Code Notes Problem Herniated nucleus pulposus, L5-S1 (M51.27) Active confirmed Displacement of lumbar intervertebral disc without myelopathy (74812718) Problem Lumbosacral radiculopathy (M54.17) Active confirmed Lumbosacral radiculopathy (0525945) VITAL SIGNS Heart Rate 90 /min 05/05/2024 Temperature 98.1 degrees Fahrenheit 05/05/2024 Respiratory Rate 18 /min 05/05/2024 Blood pressure diastolic 84 mm Hg 05/05/2024 Height 73 in 05/05/2024 Blood pressure systolic 125 mm Hg 05/05/2024 Weight 220 lbs 05/05/2024 BMI 29.02 kg/m2 05/05/2024 Encounters Encounter Location Date Provider Diagnosis [place] [facility] [address] [place] [address] 05/05/2024 Joe Tillman Lumbosacral radiculopathy M54.17 and Herniated nucleus pulposus, L5-S1 M51.27 ASSESSMENTS Encounter Date Diagnosis Assessment Notes Treatment Notes Treatment Clinical Notes Section Notes 05/05/2024 Herniated nucleus pulposus, L5-S1 (ICD-10 - M51.27) 05/05/2024 Lumbosacral radiculopathy (ICD-10 - M54.17) Impression1. [...] scores on numeric scale:Preinje ction: 03/19Postinjec tion: 01/17 PLAN OF TREATMENT No Information MEDICATIONS ADMINISTERED Medication Instructions Date of Administration Dosage Notes RIGHT L5 SNRI with fluoroscopy 05/05/2024 MEDICAL (GENERAL) HISTORY Medical History History ICD Code Asthma Active smoker--<1/2 PPD
[2024-09-30 23:27] VITALS: BP 115/101; PULSE 84; RESP 20; TEMP 36.2; O2SAT 98
--- NOTE | 2024-10-01 01:35 | PC.NURSE ---
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
--- OUTSIDE RECORDS SUMMARY | 2024-10-01 02:22 | XMS_ITS | Encounter Summary ---
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
--- OUTSIDE RECORDS SUMMARY | 2024-10-01 02:22 | XMS_ITS | Patient Health Record ---
Author Organization [facility] Address [address] [place] [address] Care Team Providers Care Janitor Helper Name Role Phone Joe Tillman Unavailable [phone] ALLERGIES No Known Allergies REASON FOR REFERRAL [...] Displacement of lumbar intervertebral disc without myelopathy (18451351) Problem Lumbosacral radiculopathy (M54.17) Active confirmed Lumbosacral radiculopathy (5351336) VITAL SIGNS Heart Rate 90 /min 05/05/2024 Temperature 98.1 degrees Fahrenheit 05/05/2024 Respiratory Rate 18 /min 05/05/2024 Blood pressure diastolic 84 mm Hg 05/05/2024 Height 73 in 05/05/2024 Blood pressure systolic 125 mm Hg 05/05/2024 Weight 220 lbs 05/05/2024 BMI 29.02 kg/m2 05/05/2024 Encounters Encounter Location Date Provider Diagnosis [place] [facility] [address] [place] [address] 05/05/2024 Joe Tillman Lumbosacral radiculopathy M54.17 and [...]
--- OUTSIDE RECORDS SUMMARY | 2024-10-01 02:22 | XMS_ITS | Clinical Summary ---
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 Not on [...] BLOOD ORDERABLES Final Result Performing Organization Address [facility] de Phone Number SAEEDANAND [address] [place], [place] [phone] * Hepatitis C antibody Blood (04/25/2024 11:00 [...] GENERAL ORDERABLES Final Result Performing Organization Address [facility] Co de Phone Number JARRED MELLO [address] Department [place] [address] from Last 3 Months or Most Recently Relevant to Health Maintenance Insurance [facility] CIGNA Care Teams Bank Runner Relationship Specialty Start Date End Date Rick Willams MD [address] [place] [address] PCP - General Family Medicine 04/25/24
--- OUTSIDE RECORDS SUMMARY | 2024-10-01 02:22 | XMS_ITS ---
Author Organization [facility] Address [address] [place] [address] Care Team Providers Care Coin Teller Name Role Phone Joe Tillman Unavailable [phone] ALLERGIES No Known Allergies REASON FOR VISIT WC--OK PER Sabi Dorantes/ Dr. Ezra Boateng/ PRODUCT PLANNER and RIGHT L5 SNRI (s) MEDICATIONS Medication [...] Lumbosacral radiculopathy (M54.17) Active confirmed Lumbosacral radiculopathy (2742612) Problem Herniated nucleus pulposus, L5-S1 (M51.27) Active confirmed Displacement of lumbar intervertebral disc without myelopathy (10968463) VITAL SIGNS Temperature 98.1 degrees Fahrenheit 05/05/20 24 Blood pressure systolic 125 mm Hg 05/05/20 24 Blood pressure diastolic 84 mm Hg 024 Heart Rate 90 /min 05/05/2024 Respiratory Rate 18 /min 05/05/2024 Height 73 in 05/05/2024 Weight 220 lbs 05/05/2024 BMI 29.02 kg/m2 05/05/2024 Encounters Encounter Location Date Provider Diagnosis [place] [facility] [address] [address] 05/05/2024 Joe Tillman Lumbosacral radiculopathy M54.17 and [...] Notes * Ricardo NEGRON:1979 (44 yo M)Acc No.[id number]:05/05/2024 Progress Notes Patient: Ricardo NEGRON Provider: Joe Tillman DO :1980 Age:44 Y Sex:Male Date:05/05/2024 Address:[address] [place], [place] [address] Subjective: * Chief Complaints: * WC--OK PER Sabi Dorantes/ Dr. Ezra Boateng/ PRODUCT PLANNER and RIGHT L5 SNRI (s) * HPI: [...] from Dr. Ezra Boateng, his orthopedic spine lending consultant, requesting right L5 selective nerve root injection. [...] cigarettes per day. Zoey barnard dinorah M [place] lumbar spine 04/04/2024 revealed termination of spinal [...] from Dr. Ezra Boateng, his orthopedic spine lending consultant, requesting right L5 selective nerve root injection. [...]
--- OUTSIDE RECORDS SUMMARY | 2024-10-01 02:22 | XMS_ITS | Clinical Summary ---
Author Organization [facility] Address [address] [place] [phone] Phone Care Team Providers Care Manager Document Control Name Role Phone Unavailable Primary Care Provider [...] st Contact Info) Description 10/05/2024 4:45 PM UTILITIES AND MAINTENANCE SUPERVISOR Ancillary Procedure [facility] [address] [place] [address] Raiza Boateng, DO [address] [place] [address] Health Maintenance Due Date Last [...] 6.1(H) <5.7 % 04/04/2024 9:40 AM CDT [facility] EST. AVG GLUCOSE, A1C 128 mg/dL 04/04/2024 9:40 AM CDT [facility] Blood Venipuncture / Unknown 04/03/2024 10:34 AM CDT 04/03/2024 10:41 AM CDT Narrative [facility] Chlorogen [facility] - 04/04/2024 9:40 AM CDT HGB A1C INTERPRETATION NORMAL: <5.7% PRE-DIABETES: 5.7 - 6.4% DIABETES: 6.5% OR GREATER us Rabia Genevieve METAL FURNITURE ASSEMBLY SUPERVISOR CHEMISTRY ORDERABLES Final R esult [facility] Chlorogen [facility]# [id number] [address] [place] [id number] from Last 3 Months or Most Recently Relevant to Health Maintenance Insurance RX [employer] Commercial RX OPTUM RX Member Subscriber Plan / Payer (Ef fective for All Dates) Name:Ricardo Falcon Relation to Subscriber:Self Name:Ricardo Falcon Subscriber ID:Not on file Payer ID:Not on file Type:RX Commercial Address: [place] WORKERS COMP WORKERS COMP Advance Directives For more information, please contact: [phone] * Full Code (Latest Code Status on File) Date Activated Date Inactivated Comments 04/03/2024 1:34 PM 04/05/2024 1:43 PM
--- OUTSIDE RECORDS SUMMARY | 2024-10-01 02:22 | XMS_ITS | Referral Summary ---
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 Not on [...] LAB BLOOD ORDERABLES Final Result JARRED MELLO [address] [place] [address] * Hepatitis C antibody Blood [...] MICROBIOLOGY - GENERAL ORDERABLES Final Result JARRED [address] [address] [place] [address] from Last 3 Months or Most Recently Relevant to Health Maintenance Insurance [facility] [place] [address] [address] Care Teams Wharf Laborer Relationship Specialty Start Date End Date Rick Willams MD [facility] [place] [address] PCP - General Family Medicine 04/25/24
== END 2024-10-01 03:07 | disposition left against medical advice (07) ==
LOC: ANHED 10-01 02:20
DX: M54.50 Low back pain, unspecified (principal)
CPT/HCPCS: 99199

== ENCOUNTER 2024-10-01 10:11 | Emergency (ER) | payer OTHER, SELFPAY ==
--- OUTSIDE RECORDS SUMMARY | 2024-10-01 10:13 | XMS_ITS | Referral Summary ---
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 Not on [...] LAB BLOOD ORDERABLES Final Result JARRED MELLO [address] [address] Department [place] [address] * Hepatitis C antibody Blood [...] MICROBIOLOGY - GENERAL ORDERABLES Final Result JARRED [address] [address] Department [place] [address] from Last 3 Months or Most Recently Relevant to Health Maintenance Insurance [facility] [place] [address] Care Teams Chain Offbearer Relationship Specialty Start Date End Date Rick Willams MD [facility] [place] [address] PCP - General Family Medicine 04/25/24
--- OUTSIDE RECORDS SUMMARY | 2024-10-01 10:13 | XMS_ITS | Clinical Summary ---
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 [...] BLOOD ORDERABLES Final Result Performing Organization Address [facility] de Phone Number SAEEDANAND [address] [address] [employer] [place], [place] [phone] * Hepatitis C antibody Blood (04/25/2024 11:00 [...] GENERAL ORDERABLES Final Result Performing Organization Address [facility] Co de Phone Number JARRED MELLO [address] [address] [place] [address] from Last 3 Months or Most Recently Relevant to Health Maintenance Insurance [facility] CIG[employer] Care Teams Rug Sample Beveler Relationship Specialty Start Date End Date Rick Willams MD [address] [place] [address] PCP - General Family Medicine 04/25/24
--- OUTSIDE RECORDS SUMMARY | 2024-10-01 10:13 | XMS_ITS | Clinical Summary ---
Author Organization [facility] Address [address] [place] [phone] Phone Care Team Providers Care Sinker Winder Name Role Phone Unavailable Primary Care Provider [...] st Contact Info) Description 10/05/2024 4:45 PM DISHCLOTH FOLDER Ancillary Procedure [facility] [address] [place] [address] Raiza Boateng, DO [address] [place] [address] Health Maintenance Due Date Last [...] 6.1(H) <5.7 % 04/04/2024 9:40 AM CDT [facility] EST. AVG GLUCOSE, A1C 128 mg/dL 04/04/2024 9:40 AM CDT [facility] Blood Venipuncture / Unknown 04/03/2024 10:34 AM CDT 04/03/2024 10:41 AM CDT Narrative [facility] [employer] [facility] - 04/04/2024 9:40 AM CDT HGB A1C INTERPRETATION NORMAL: <5.7% PRE-DIABETES: 5.7 - 6.4% DIABETES: 6.5% OR GREATER us Rabia Genevieve FORM COVERER CHEMISTRY ORDERABLES Final R esult [facility] [employer] [facility]# [id number] [address] [place] [phone] from Last 3 Months or Most Recently Relevant to Health Maintenance Insurance RX [employer] Commercial RX [employer] RX Member Subscriber Plan / Payer (Ef fective for All Dates) Name:Ricardo Falcon Relation to Subscriber:Self Name:Ricrado Falcon Subscriber ID:Not on file Payer ID:Not on file Type:RX Commercial Address: [place] WORKERS COMP WORKERS COMP Advance Directives For more information, please contact: [phone] * Full Code (Latest Code Status on File) Date Activated Date Inactivated Comments 04/03/2024 1:34 PM 04/05/2024 1:43 PM
--- OUTSIDE RECORDS SUMMARY | 2024-10-01 10:13 | XMS_ITS | Encounter Summary ---
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
[2024-10-01 10:18] VITALS: BP 140/88; PULSE 85; RESP 16; TEMP 36.5; O2SAT 100
--- OUTSIDE RECORDS SUMMARY | 2024-10-01 12:48 | XMS_ITS | Clinical Summary ---
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 Not on [...] BLOOD ORDERABLES Final Result Performing Organization Address [facility] de Phone Number SAEEDANAND [address] [employer] [place], [place] [phone] * Hepatitis C antibody Blood (04/25/2024 11:00 [...] GENERAL ORDERABLES Final Result Performing Organization Address [facility] Co de Phone Number JARRED MELLO [address] [address] [place] [address] from Last 3 Months or Most Recently Relevant to Health Maintenance Insurance [facility] CIGNA Care Teams Carder Blankets Relationship Specialty Start Date End Date Rick Willams MD [address] [place] [address] PCP - General Family Medicine 04/25/24
--- OUTSIDE RECORDS SUMMARY | 2024-10-01 12:48 | XMS_ITS | Referral Summary ---
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 Not on [...] LAB BLOOD ORDERABLES Final Result JARRED MELLO [address] [address] Department [place] [address] * Hepatitis C antibody Blood [...] MICROBIOLOGY - GENERAL ORDERABLES Final Result JARRED [address] [address] [place] [address] from Last 3 Months or Most Recently Relevant to Health Maintenance Insurance [facility] [place] [address] [place] [address] Care Teams Drop Hammer Set Up Operator Relationship Specialty Start Date End Date Rick Willams MD [facility] [place] [address] PCP - General Family Medicine 04/25/24
--- OUTSIDE RECORDS SUMMARY | 2024-10-01 12:48 | XMS_ITS | Clinical Summary ---
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 [address] [place] [address] Raiza Boateng, DO [address] [place] [address] Health Maintenance Due Date Last [...] 6.1(H) <5.7 % 04/04/2024 9:40 AM CDT [facility] EST. 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 ORDERABLES Final R esult [facility] Crono [facility] [place]# [id number] [address] [place] [id number] from Last 3 Months or Most Recently Relevant to Health Maintenance Insurance RX [employer] Commercial RX OPT[employer] RX Member Subscriber Plan / Payer (Ef fective for All Dates) Name:Ricardo Falcon Relation to Subscriber:Self Name:Ricardo Falcon Subscriber ID:Not on file Payer ID:Not on file Type:RX Commercial Address: [place] WORKERS COMP WORKERS COMP Advance Directives For more information, please contact: [phone] * Full Code (Latest Code Status on File) Date Activated Date Inactivated Comments 04/03/2024 1:34 PM 04/05/2024 1:43 PM
--- OUTSIDE RECORDS SUMMARY | 2024-10-01 12:48 | XMS_ITS | Encounter Summary ---
Author Organization [facility] Healthcare Address [address] [place] [address] Care Team Providers Care Trans Router Name Role Phone Rick Willams MD Primary Care Provider [phone] Encounter Details Date Type Department Care Team ([facility] st Contact Info) Description 05/25/[address] 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
[2024-10-01 13:20] VITALS: BP 141/92; PULSE 75; RESP 18; O2SAT 99
[2024-10-01] MEDS: HYDROmorphone HCL INJ (*CRX) 1 MG/ML SYR IM (13:29)
--- NOTE | 2024-10-01 13:49 | ED_ITS ---
HPI - Back Pain/Injury General Chief Complaint: Back Pain/Injury Stated Complaint: lower back pain Time Seen by Provider: 10/01/24 12:24 History of Present Illness HPI Narrative: 44-year-old male presenting to the emergency department for evaluation of right- sided leg radiculopathy. He has a history of chronic right-sided lower lumbar and right-sided disc bulging status post discectomy with his surgeon at [facility] in early May of last year. Patient has gone through physical therapy and takes gabapentin and muscle relaxers at home to help the pain and symptoms. He still has persistent radiculopathy symptoms especially with certain movements and twisting activities. Describes pins and needles sensation radiating down his sciatic nerve distribution of his posterior right buttock going down towards his toes. No weakness in the limb, denies any bladder dysfunction, sensory loss, weakness, saddle numbness or anesthesia. Denies any bowel dysfunction or incontinence. No fever chills. No new injury trauma. He is followed up outpatient regular and has a scheduled MRI in 3 days for maintenance and screening. Patient states that he has tried is at home treatments for his pain without any significant relieved today and is requesting additional medications for analgesia. Was otherwise in his normal state of health. Related Data Allergies Allergy/AdvReac Type Severity Reaction Status Date / Time No Known Allergies Allergy Verified 09/30/24 23:30 Review of Systems Review of Systems: As reviewed above in HPI Exam Narrative: GENERAL: [Well-appearing, well-nourished, and in no acute distress.] HEAD: [Normocephalic, atraumatic.] EYES: [PERRLA and EOMI.] ENT: Nares clear, no rhinorrhea or epistaxis. Mucous membranes moist. NECK: Supple. CHEST: [Clear to auscultation. No respiratory distress.] HEART: [Regular rate and rhythm]. No murmur heard. [Normal peripheral pulses.] ABDOMEN: [Soft, nondistended], [nontender], [No rigidity or guarding] EXTREMITIES: Normal range of motion. [No edema.] Positive straight leg raise on the right side, reproducible tenderness to palpation over the sciatic nerve distribution on the right side, no midline tenderness to the C, T, L-spine. No restricted range of motion. Ambulates in the ED without assistance. SKIN: Warm, dry, no rash. NEURO: [No focal deficits]. Alert and oriented [x3.] EHL and FHL 5/5 strength, proximal hip and knee flexors and extensors with full strength. Subjective paresthesias but no anesthesia is in the right lower extremity. No saddle anesthesia or numbness. PSYCH: [Normal mood and affect.] Course Vital Signs Vital signs: Vital Signs Temperature 36.5 C 10/01/24 10:18 Pulse Rate 85 10/01/24 10:18 Respiratory Rate 16 10/01/24 10:18 Blood Pressure 140/88 10/01/24 10:18 Pulse Oximetry 100 10/01/24 10:18 Temperature 36.5 C 10/01/24 10:18 Pulse Rate 75 10/01/24 13:20 Respiratory Rate 18 10/01/24 13:20 Blood Pressure 141/92 H 10/01/24 13:20 Pulse Oximetry 99 10/01/24 13:20 Oxygen Delivery Room Air 10/01/24 13:20 MDM - Back Pain/Injury MDM Narrative Medical decision making narrative: 44-year-old male with a past medical history including lumbar radiculopathy and bulging disc requiring diskectomy in surgical procedure in May of last year. Patient has been doing well but never fully recovered from the chronic pain. Still follows with physical therapy and has outpatient MRI scheduled in 3 days. He has no red flag symptoms of his back pain at this time, seems very consistent with exacerbation of his chronic radiculopathy. He has no bladder or bowel dysfunction, no altered sensation different from his baseline, no weakness, no numbness no saddle anesthesia. No fever chills, no evidence of infection over the posterior back, no tenderness over the midline spine. Normal vital signs with any fever, tachycardia. Suspicion presently is for an exacerbation of chronic lumbar radiculopathy and lumbar back pain, low suspicion for infectious process given his normal vitals and exam findings. No red flags for central cord pathology such as cauda equina or conus medullaris. Will treat with a com bination of Decadron dilaudid intramuscular injection re-evaluated to see if his pain is improved. Can safely discharged home with combination pills for pain control given his close outpatient follow-up and already scheduled MRI in several days. Patient is comfortable this plan of care. Patient was re-evaluated had complete symptomatic improvement. He is able ambulate in the ED, pain is down to the 0. Patient is safe and stable for discharge home at this time will be sent home with a steroid pack for next several days in addition to as needed pain control medications so he can complete his physical therapy. He has an MRI scheduled this week and has an outpatient appointment also schedule. Patient is safe and stable for discharge and given return precautions. Differential Diagnosis Differential diagnosis: Likely lumbar radiculopathy, sciatica, strain of lumbar region and other Medical Records Attestation: I reviewed the patient's medical records. Discharge Plan Discharge Clinical Impression: Lumbar radiculopathy, Strain of lumbar region, Sciatica Patient Disposition: Home, Self-Care Condition: Stable Instructions: Antibiotic Form, Acute Low Back Pain (ED), Lumbar Radiculopathy (ED), Lower Back Exercises (ED) Additional Instructions: Given your improvement with steroids and pain medicines here we will continue this regimen and send you home with a similar regimen. Take the steroids daily for the next 5 days and then take the pain medications as needed to make sure that he can complete her physical therapy and go by your normal activities. Continue following up with her outpatient doctor and complete the MRI on Thursday. Return to the ER if you have increased pain in your back, you develop lower extremity weakness/numbness/paralysis, you have numbness or tin gling in your private parts, or you are unable to control your ability to urinate/stool. Patient Language: Swedish Prescriptions: New hydrocodone-acetaminophen 5-325 mg tablet 1 tablet PO Q8H PRN (Reason: pain) Qty: 14 0RF ketorolac 10 mg tablet 10 mg PO Q8H PRN (Reason: pain) 5 Days Qty: 20 0RF Rx Instructions: maximum total duration of 5 days from all oral, intranasal, or parenteral formulations prednisone 50 mg tablet 50 mg PO DAILY 5 Days Qty: 5 0RF No Action guaifenesin 200 mg tablet 200 mg PO QID PRN (Reason: congestion) Qty: 30 0RF albuterol sulfate 90 mcg/actuation HFA aerosol inhaler 2 puff inhalation QID PRN (Reason: shortness of breath or wheezing) Qty: 6.7 0RF Follow-up/Referrals: PHYSICIAN NOT ON STAFF,NONSTAFF [Primary Care Provider] - Time of Disposition: 14:41
[2024-10-01] MEDS: dexAMETHasone SOD PHOS INJ 10 MG/ML 1 ML VIAL IM (14:08)
[2024-10-01 15:03] VITALS: BP 116/90; PULSE 85; RESP 16; O2SAT 100
== END 2024-10-01 15:05 | disposition home or self-care (01) ==
PROVIDERS: Emergency Provider Student in an Organized Health Care Education/Training Program
DX: M54.16 Radiculopathy, lumbar region (principal); M54.41 Lumbago with sciatica, right side; S39.012A Strain of muscle, fascia and tendon of lower back, initial encounter; X58.XXXA Exposure to other specified factors, initial encounter
CPT/HCPCS: 96372; 99284; J1100; J1171

== ENCOUNTER 2025-04-16 01:26 | Emergency (ER) | payer OTHER, SELFPAY ==
--- OUTSIDE RECORDS SUMMARY | 2024-11-21 03:30 | XMS_ITS ---
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 WC- Right S1 selective nerve root block. * Medical History: Objective: * Vitals: Assessment: Plan: * Treatment: * * Electronic signature of Xander Monique MD on 04/16/2025 at 07:10 AM EDT Sign off status: Pending * Provider: Esme Monique MD Date: 11/21/2024 Generated for Ana M hernandez/Aniceto/Michelleitting on: 04/16/2025 07:10 AM EDT
--- NOTE | ~2025-04-16 | CT_ITS ---
EXAMINATION: CT lumbar spine wo wanda, 04/16/2025 4:58 CDT HISTORY: lower back pain COMPARISON: No comparisons available. Technique: Axial images were obtained of the spine per protocol. One or more of the following dose reduction techniques were used: automated exposure control, adjustment of the mA and/or kV according to patient size, use of iterative reconstruction technique. Unless otherwise stated, incidental findings do not require dedicated follow up imaging Findings: The vertebral heights are intact. No fracture or subluxation. The disc heights are intact. Soft tissues unremarkable Impression: No acute abnormality. Reviewed, dictated and finalized at location A. Impression: No acute abnormality.
[2025-04-16 01:30] VITALS: BP 148/97; PULSE 82; RESP 16; TEMP 36.6; O2SAT 99
[2025-04-16 05:24] VITALS: BP 140/88; PULSE 73; RESP 15; O2SAT 100
[2025-04-16] MEDS: HYDROcodone/acetaminophen (*CRX) 5-325 MG TABLET 1 TAB PO (05:48)
--- OUTSIDE RECORDS SUMMARY | 2025-04-16 06:10 | XMS_ITS | Clinical Summary ---
Author Organization [facility] Address [address] [place] [address] Phone Care Team Providers Care Drapery Inspector Name Role Phone Unavailable Primary Care Provider Unavailabl e Allergies No known active allergies Medications atorvastatin (LIPITOR) 20 mg tablet Take 20 mg by mouth daily. 04/26/2024 04/26/20 Active gabapentin (NEURONTIN) 100 mg capsule Take 100 mg by mouth 3 times daily. 04/19/2024 Active meloxicam (MOBIC) 7.5 mg tablet Take 7.5 mg by mouth daily. 04/19/2024 Active methocarbamoL (ROBAXIN) 750 mg tablet Take 1 Tablet (750 mg) by mouth 3 times daily as needed for Spasm. 30 Tablet 02/06/2025 4:12 PM CDT 02/06/2025 Active HYDROcodone-acet aminophen (NORCO) 5-325 mg tabletIndication s:Low back pain with bilateral sciatica, unspecified back pain laterality, unspecified chronicity Take 2 Tablets by mouth every 6 hours as needed for Break-Throug h Pain. Max Daily Amount: 8 Tablets 20 Tablet 02/06/2025 4:12 PM CDT 02/06/2025 Active Active Problems Problem Noted Date Diagnosed Date Low back pain with bilateral sciatica 02/05/2025 Protruded lumbar disc 04/04/2024 Overview (04/04/2024): 04/04/2024: [...] Encounters Date Type Department Care Team Description 04/05/2025 External Device Data ST[facility] ABSTRACTION Provider, Abstract 04/04/2025 External Device Data ST[facility] ABSTRACTION Provider, Abstract 04/04/2025 External Device Data [facility] ABSTRACTION Provider, Abstract 03/29/2025 External Device Data ST[facility] ABSTRACTION Provider, Abstract 03/15/2025 External Device Data ST[facility] ABSTRACTION Provider, Abstract 03/07/2025 External Device Data ST[facility] ABSTRACTION Provider, Abstract 03/07/2025 External Device Data ST[facility] ABSTRACTION Provider, Abstract 03/07/2025 External Device Data STL ABSTRACTION Provider, Abstract 02/14/2025 External Device Data STL ABSTRACTION Provider, Abstract 02/07/2025 External Device Data STL ABSTRACTION Provider, Abstract 02/07/2025 External Device Data STL ABSTRACTION Provider, Abstract 02/07/2025 External Device Data STL ABSTRACTION Provider, Abstract 02/05/2025 5:45 AM CDT - 02/06/2025 3:48 PM CDT Hospital Encounter [facility] Emergency Clinical Decision Unit [address] [place] [address] Maria Luisa Hill MD Low back pain with bilateral sciatica, unspecified back pain laterality, unspecified chronicity (Primary Dx) Discharge Disposition: Home or Self Care 02/05/2025 Travel 01/31/2025 External Device Data STL ABSTRACTION Provider, Abstract 01/31/2025 External Device Data STL ABSTRACTION Provider, Abstract 01/31/2025 External Device Data STL ABSTRACTION Provider, Abstract [...] who hurts you emotionally and/or physically? No 02/05/2025 Food Insecurity Answer Date Recorded Patient needs follow up regardin 12/18/2024 Transportation Needs Answer Date Record ed Patient needs follow up regardin 12/18/2024 Housing Stability Answer Date Recorded Social/Environmental Concerns No concerns Utility Needs Answer Date Recorded Patient needs follow up regardin 12/18/2024 Sex and Gender Information Value Date Recorded Sex Assigned at Not on file Legal Sex Male 3:05 PM CDT Gender Identity Not on file Sexual Orientation Not on file Last Filed Vital Signs Vital Sign Reading Time Taken Comments Blood Pressure 132/80 02/06/2025 3:36 PM CDT Pulse 74 02/06/2025 3:36 PM CDT Temperature 36.6 C (97.8 F) 02/06/2025 3:36 PM CDT Respiratory Rate 18 02/06/2025 3:36 PM CDT Oxygen Saturation 99% 02/06/2025 3:36 PM CDT Inhaled Oxygen Concentration - - Weight 108.9 kg (240 lb) 02/05/2025 8:56 AM CDT Height 185.4 cm (6' 1) 02/05/2025 8:56 AM CDT Body Mass Index 31.66 02/05/2025 8:56 AM CDT Plan of Treatment Health Maintenance Due Date Last Done Comments DTAP/TDAP/TD VACCINES (1 - Tdap) 1997 HEPATITIS B VACCINES (1 of 3 - 19+ 3-dose series) 12/1996 COLORECTAL SCREENING 2023 Colorectal Cancer Screening 2023 FIT-DNA Q 3 years 2023 FIT/FOBT Q 1 year 2023 Flex Sig/CT Colonography Q 5 years 2023 INFLUENZA VACCINE (#1) 2025 Pre-Diabetes and Diabetes Screening 04/03/202704/03 Procedures Procedure Name Priority Date/Time Associated Diagnosis Comments MRI LUMBAR WO CONTRAST Stat 2:[address] LUMBAR SPINE WO CONTRAST Stat 02/05/2025 7:34 AM CDT COMPREHENSIVE METABOLIC PANEL Stat 02/05/2025 7:10 AM CDT CBC WITH DIFFERENTIAL Stat 02/05/2025 7:10 AM CDT HEMOGLOBIN A1C Routine 04/03/2024 10:34 AM CDT from Last 3 Months or Most Recently Relevant to Health Maintenance Results * MRI LUMBAR WO CONTRAST (02/05/2025 2:11 PM CDT) Anatomical Region Laterality Modality Spine Magnetic Resonan ce 02/05/2025 2:11 PM CDT Impressions 02/05/2025 2:20 PM CDT IMPRESSION: 1. Decreased size of disc protrusion at L5-S1. 2. Mild degenerative disc disease at L5-S1. 3. No significant spinal canal stenosis in the lumbar spine. 4. Posterior paraspinal muscle edema at L5 and S1. 5. Mild degenerative disc disease at L5-S1. 6. Multilevel neural foraminal narrowing as above. DICTATION LOCATION: Location 4 Narrative 02/05/2025 2:20 PM CDT MRI LUMBAR WO CONTRAST Date: 02/05/2025 2:11 PM Indication: Lumbar radiculopathy, symptoms persist with > 6 wks treatment Comparison: Same day CT head and April 04, 2024 MRI. Technique: Multi-planar multi-weighted magnetic resonance imaging of the lumbar spine was performed without intravenous contrast using the standard lumbar spine protocol. FINDINGS: The lumbar spine is normally aligned. No acute fracture. Vertebral body heights are maintained without compression deformity. Disc desiccation at L5-S1 without significant disc space height loss. Bilateral posterior paraspinal muscle edema at the levels of L5-S1. The conus terminates at a normal level. No abnormal signal is seen within the visualized distal spinal cord. No clumping of intrathecal nerve roots. No soft tissue abnormality in the visualized abdomen or pelvis. T12-L1: No disc bulge. Mild facet arthritis. No significant spinal stenosis or neural foraminal narrowing. L1-L2: No disc bulge. Mild facet arthritis. No significant spinal stenosis or neural foraminal narrowing. L2-L3: No disc bulge. Mild facet arthritis. No significant spinal stenosis or neural foraminal narrowing. L3-L4: No disc bulge. No facet arthropathy. No significant spinal stenosis or neural foraminal narrowing. L4-L5: Minimal disc bulge. Mild facet arthritis. Ligamentum flavum thickening. No significant spinal canal stenosis. Mild right neural foraminal narrowing. L5-S1: Disc bulge. Decreased size of disc protrusion. Mild to moderate right and mild left facet arthritis. No significant spinal canal stenosis. Mild to moderate bilateral neural foraminal narrowing. Procedure Note Nicholas Noguera MD - 02/05/2025 MRI LUMBAR WO CONTRAST Date: 02/05/2025 2:11 PM Indication: Lumbar radiculopathy, symptoms persist with > 6 wks treatment Comparison: Same day CT head and April 04, 2024 MRI. Technique: Multi-planar multi-weighted magnetic resonance imaging of the lumbar spine was performed without intravenous contrast using the standard lumbar spine protocol. FINDINGS: The lumbar spine is normally aligned. No acute fracture. Vertebral body heights are maintained without compression deformity. Disc desiccation at L5-S1 without significant disc space height loss. Bilateral posterior paraspinal muscle edema at the levels of L5-S1. The conus terminates at a normal level. No abnormal signal is seen within the visualized distal spinal cord. No clumping of intrathecal nerve roots. No soft tissue abnormality in the visualized abdomen or pelvis. T12-L1: No disc bulge. Mild facet arthritis. No significant spinal stenosis or neural foraminal narrowing. L1-L2: No disc bulge. Mild facet arthritis. No significant spinal stenosis or neural foraminal narrowing. L2-L3: No disc bulge. Mild facet arthritis. No significant spinal stenosis or neural foraminal narrowing. L3-L4: No disc bulge. No facet arthropathy. No significant spinal stenosis or neural foraminal narrowing. L4-L5: Minimal disc bulge. Mild facet arthritis. Ligamentum flavum thickening. No significant spinal canal stenosis. Mild right neural foraminal narrowing. L5-S1: Disc bulge. Decreased size of disc protrusion. Mild to moderate right and mild left facet arthritis. No significant spinal canal stenosis. Mild to moderate bilateral neural foraminal narrowing. IMPRESSION: 1. Decreased size of disc protrusion at L5-S1. 2. Mild degenerative disc disease at L5-S1. 3. No significant spinal canal stenosis in the lumbar spine. 4. Posterior paraspinal muscle edema at L5 and S1. 5. Mild degenerative disc disease at L5-S1. 6. Multilevel neural foraminal narrowing as above. DICTATION LOCATION: Location 4 us Maria Luisa Hill MD MR ORDERABLES Final Result * CT LUMBAR SPINE WO CONTRAST (02/05/2025 7:34 AM CDT) Anatomical Region Laterality Modality Spine Computed Tomogra phy 02/05/2025 7:30 AM CDT Impressions 02/05/2025 7:39 AM CDT IMPRESSION: No acute osseous abnormality of the lumbar spine. DICTATION LOCATION: Location 4 Narrative 02/05/2025 7:[address] LUMBAR SPINE WO CONTRAST Date: 02/05/2025 7:34 AM Indication: Lumbar radiculopathy, symptoms persist with > 6 wks treatment Comparison: December 01, 2023 CT. Technique: CT images of the lumbar spine were obtained without contrast. Coronal and sagittal reformatted images were also performed. One or more of the following dose reduction techniques were utilized: Automated exposure control (AEC), Adjustment of mA and/or kV according to patient size, CT scan done according to ALARA and image gently/image wisely. Findings: The lumbar spine is normally aligned. No acute fracture. Vertebral body heights are maintained without compression deformity. The intervertebral disc spaces are normal. No aggressive lytic or blastic osseous lesion. No evidence of high-grade spinal canal stenosis or neural foraminal narrowing. No soft tissue abnormality within the visualized abdomen or pelvis. The visualized abdominal aorta is normal caliber. Procedure Note Nicholas Noguera MD - 02/05/2025 CT LUMBAR SPINE WO CONTRAST Date: 02/05/2025 7:34 AM Indication: Lumbar radiculopathy, symptoms persist with > 6 wks treatment Comparison: December 01, 2023 CT. Technique: CT images of the lumbar spine were obtained without contrast. Coronal and sagittal reformatted images were also performed. One or more of the following dose reduction techniques were utilized: Automated exposure control (AEC), Adjustment of mA and/or kV according to patient size, CT scan done according to ALARA and image gently/image wisely. Findings: The lumbar spine is normally aligned. No acute fracture. Vertebral body heights are maintained without compression deformity. The intervertebral disc spaces are normal. No aggressive lytic or blastic osseous lesion. No evidence of high-grade spinal canal stenosis or neural foraminal narrowing. No soft tissue abnormality within the visualized abdomen or pelvis. The visualized abdominal aorta is normal caliber. IMPRESSION: No acute osseous abnormality of the lumbar spine. DICTATION LOCATION: Location 4 us Maria Luisa Hill MD CT ORDERABLES Final Result * (ABNORMAL) CBC WITH DIFFERENTIAL (02/05/2025 7:10 AM CDT) WBC 7.7 4.0 - 9.8 K/uL 02/05/2025 7:34 AM CDT [facility] RBC 4.47(L) 4.50 - 5.40 M/uL 02/05/2025 7:34 AM CDT [facility] HEMOGLOBIN 13.0(L) 13.6 - 16.5 g/dL 02/05/2025 7:34 AM CDT [facility] HEMATOCRIT 39.8(L) 40.0 - 48.0 % 02/05/2025 7:34 AM CDT [facility] MCV 89.0 82.0 - 99.0 fL 02/05/2025 7:34 AM CDT [facility] MCH 29.1 27.2 - 32.6 pg 02/05/2025 7:34 AM CDT [facility] MCHC 32.7 31.5 - 35.5 g/dL 02/05/2025 7:34 AM CDT [facility] RDW 15.9(H) 11.5 - 14.5 % 02/05/2025 7:34 AM CDT [facility] RDW-STDEV 51.5(H) 37.1 - 48.7 fL 02/05/2025 7:34 AM CDT [facility] PLATELETS 296 140 - 350 K/uL 02/05/2025 7:34 AM CDT [facility] MPV 11.3 9.3 - 12.4 fL 02/05/2025 7:34 AM CDT [facility] NEUTROPHILS 48 % 02/05/2025 7:34 AM CDT [facility] LYMPHOCYTES 41 % 02/05/2025 7:34 AM CDT [facility] MONOCYTES 8 % 02/05/2025 7:34 AM CDT [facility] EOSINOPHILS 3 % 02/05/2025 7:34 AM CDT [facility] BASOPHILS 0 % 02/05/2025 7:34 AM CDT [facility] IMMATURE GRANULOCYTES 0 % 02/05/2025 7:34 AM CDT [facility] NEUTROPHIL ABSOLUTE 3.66 1.90 - 7.00 K/uL 02/05/2025 7:34 AM CDT [facility] LYMPHOCYTE ABSOLUTE 3.14 0.70 - 4.50 K/uL 02/05/2025 7:34 AM CDT [facility] MONOCYTE ABSOLUTE 0.61 0.10 - 1.30 K/uL 02/05/2025 7:34 AM CDT [facility] EOSINOPHIL ABSOLUTE 0.21 0.00 - 0.70 K/uL 02/05/2025 7:34 AM CDT [facility] BASOPHILS ABSOLUTE 0.03 0.00 - 0.20 K/uL 02/05/2025 7:34 AM CDT [facility] IMMATURE GRANULOCYTES ABSOLUTE 0.03 0.00 - 0.03 K/uL 02/05/2025 7:34 AM CDT [facility] Blood Venipuncture / Unknown 02/05/2025 7:10 AM CDT 02/05/2025 7:28 AM CDT us Maria Luisa Hill MD HEMATOLOGY ORDERABLES Final Result [facility] - [facility] [place] CLIA# [id number] [address] [place] [address] * COMPREHENSIVE METABOLIC PANEL (02/05/2025 7:10 AM CDT) Pathologist [facility] SODIUM 137 136 - 145 mmol/L 02/05/2025 8:08 AM [facility] POTASSIUM 02/05/2025 8:08 AM [facility] Comment: Test cannot be performed. Sample hemolysis interference above limits. Redraw if indicated. Emergency Department treatment team secure chatted. CHLORIDE 105 98 - 107 mmol/L 02/05/2025 8:08 AM [facility] CO2 23 22 - 29 mmol/L 02/05/2025 8:08 AM [facility] CALCIUM 9.4 8.6 - 10.2 mg/dL 02/05/2025 8:08 AM [facility] BUN 11 6 - 20 mg/dL 02/05/2025 8:08 AM [facility] CREATININE 0.87 0.67 - 1.17 mg/dL 02/05/2025 8:08 AM [facility] - . [facility] GLUCOSE 98 74 - 99 mg/dL 02/05/2025 8:08 AM [facility] - . [facility] TOTAL PROTEIN 7.8 6.7 - 8.6 g/dL 02/05/2025 8:08 AM [facility] - . [facility] ALBUMIN 4.0 3.5 - 5.2 g/dL 02/05/2025 8:08 AM [facility] - . [facility] BILIRUBIN TOTAL <0.2 0.0 - 1.2 mg/dL 02/05/2025 8:08 AM [employer] [facility] - [facility] ALKALINE PHOSPHATASE 02/05/2025 8:08 AM [employer] [facility] Comment: Test cannot be performed. Sample hemolysis interference above limits. Redraw if indicated. Emergency Department treatment team secure chatted. AST 02/05/2025 8:08 AM [employer] [facility] Comment: Test cannot be performed. Sample hemolysis interference above limits. Redraw if indicated. Emergency Department treatment team secure chatted. ALT 02/05/2025 8:08 AM CDT [facility] [facility] Comment: Test cannot be performed. Sample hemolysis interference above limits. Redraw if indicated. Emergency Department treatment team secure chatted. GFR >60 >=60 mL/min/1.7 3 sq meter 02/05/2025 8:08 AM CDT [facility] [employer] [facility] Comment:eGFR calculated with 2020 CKD-EPI equation. Vegetarian diet, extremely high or low muscle mass, and may affect results. Cystatin C with Glomerular Filtration Rate is a suitable alternative for these patients. ANION GAP 9 8 - 16 mmol/L 02/05/2025 8:08 AM CDT [facility] [employer] [facility] Blood Venipuncture / Unknown 02/05/2025 7:10 AM CDT 02/05/2025 7:28 AM CDT [facility] [employer] [facility] - 02/05/2025 8:08 AM CDT Samples containing indocyanine green cause interferences on Total and/or Direct Bilirubin and must not be measured. Maria Luisa Hill MD CHEMISTRY ORDERABLES Final R esult [facility] [employer] [facility]# [id number] [address] [facility] [place] [address] * (ABNORMAL) HEMOGLOBIN A1C (04/03/2024 10:34 AM CDT) HEMOGLOBIN A1C 6.1(H) <5.7 % 04/04/2024 9:40 AM CDT [facility] [employer] [facility] EST. AVG GLUCOSE, A1C 128 mg/dL 04/04/2024 9:40 AM CDT [facility] [employer] [facility] Blood Venipuncture / Unknown 04/03/2024 10:34 AM CDT 04/03/2024 10:41 AM CDT Narrative [facility] [employer] [facility] - 04/04/2024 9:40 AM CDT HGB A1C INTERPRETATION NORMAL: <5.7% PRE-DIABETES: 5.7 - 6.4% DIABETES: 6.5% OR GREATER Rabia JULIANN CHEMISTRY ORDERABLES Final R esult [facility] [id number] [address] [place] [address] from Last 3 Months or Most Recently Relevant to Health Maintenance Insurance RX [employer] Commercial RX [employer] RX Member Subscriber Plan / Payer (Ef fective for All Dates) Name:Ricardo Falcon Relation to Subscriber:Self Name:Ricardo Falcon Subscriber ID:Not on file Payer ID:Not on file Type:RX Commercial Address: [address] [employer] OPEN [employer] 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
--- OUTSIDE RECORDS SUMMARY | 2025-04-16 06:10 | XMS_ITS | Clinical Summary ---
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 Not on [...] 10:18 AM CDT Height 185.4 cm (6' 1) 04/25/2024 10:18 AM CDT Body Mass Index 29.55 04/25/2024 10:18 AM CDT Plan of Treatment Health Maintenance Due Date Last Done Comments Colon Cancer Screening-Colonoscopy 1980 Influenza Vaccine (#1) 2025 Pneumococcal vaccine <65 (1 of 2 - PCV) 04/10/2025 Postponed from 02/11 (Patient declined, but will receive in the future) Depression Screening 04/25/2025 04/25/2024 Regular Well Visit/Exam 18-64 04/25/2025 04/25/2024 DTaP/Tdap/Td Vaccine (1 - Tdap) 08/09/2025 Postponed from 1989 (Insurance / Financial) Prostate Cancer Screening-PSA 04/25/2026 04/25/2024 Hepatitis B Screening Completed 04/25/2024 Hepatitis C Screening Completed 04/25/2024 Procedures Procedure Name Priority Date/Time Associated Diagnosis [...] 0 AM CDT 04/25/2024 2:52 PM CDT Result [facility] Rick Willams MD LAB BLOOD ORDERABLES Final Result Performing Organization Address [facility] Phone Number JARRED [phone] [place] [address] * Hepatitis C antibody Blood [...] GENERAL ORDERABLES Final Result Performing Organization Address [facility] de Phone Number JARRED [phone] [place], [place] [phone] from Last 3 Months or Most Recently Relevant to Health Maintenance Insurance [facility] [address] [place] [address] Care Teams Digital Content Producer Relationship Specialty Start Date End Date Rick Willams MD [address] [place] [address] PCP - General Family Medicine 04/25/24
--- OUTSIDE RECORDS SUMMARY | 2025-04-16 06:10 | XMS_ITS | Patient Health Record ---
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 Role Phone Ap Monique Unavailable [phone] Joe Tillman Unavailable [phone] Allergies No Known Allergies Reason For Referral No Information Medications Medication SIG (Take, Route, Frequency, Duration) Notes Start Date End Date Status Meloxicam 7.5 MG TAKE 1 TABLET BY AYO TH EVERY DAY Oral; Duration: 30 Days Active Cyclobenzaprine HCl 10 MG TAKE 1 TABLET BY MOUTH 3 TIMES A DAY Oral; Duration: 30 Days Active Naproxen 500 MG Oral; Duration: 10 Days Active Gabapentin 100 MG TAKE 1 TABLET BY AYO TH 3 TIMES A DAY Oral; Duration: 30 Days Active Problems Problem Type SNOMED Code ICD Code Onset Dates Problem Status W/U Status Risk Notes Problem Displacement of lumbar intervertebral disc without myelopathy (94242728) Herniated nucleus pulposus, L5-S1 (M51.27) Active confirmed Problem Lumbosacral spondylosis without myelopathy (70088732) 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) Active confirmed Problem Lumbosacral radiculopathy (9988238) Lumbosacral radiculopathy (M54.17) Active confirmed Vital Signs Heart Rate 60 /min 11/24/2024 Temperature 97.9 degrees Fahrenheit 11/24/2024 Respiratory Rate 18 /min 11/24/2024 Blood pressure diastolic 80 mm Hg 11/24/2024 Height 73 in 11/24/2024 Blood pressure systolic 134 mm Hg 11/24/2024 Weight 230 lbs 11/24/2024 BMI 30.34 kg/m2 11/24/2024 Encounters Encounter Location Date Provider Diagnosis [facility] [address] [place] [address] 05/05/2024 Joe Tillman Lumbosacral radiculopathy M54.17 and Herniated nucleus pulposus, L5-S1 M51.27 [facility] [address] [place] [address] 10/17/2024 Ap Cajigal Arthropathy of lumbosacral facet joint M47.817 ; Lumbosacral radiculopathy M54.17 and Herniated nucleus pulposus, L5-S1 M51.27 [facility] [address] [place] [address] 11/07/2024 Ap Cajigal Arthropathy of lumbosacral facet joint M47.817 ; Lumbosacral radiculopathy M54.17 and Herniated nucleus pulposus, L5-S1 M51.27 [facility] [address] [place] [address] 11/24/2024 Ap Cajigal Arthropathy of lumbosacral facet joint M47.817 ; Lumbosacral radiculopathy M54.17 and Herniated nucleus pulposus, L5-S1 M51.27 Assessments Encounter Date Diagnosis (ICD Code) Assessment Notes Treatment Notes Treatment Clinical Notes [...] scores on numeric scale:Preinje ction: 03/19Postinjec tion: 01/1710/17/2024 Arthropathy of lumbosacral facet joint (ICD-10 - M47.817) 11/07/2024 Arthropathy of lumbosacral facet joint (ICD-10 - M47.817) 11/24/2024 Arthropathy of lumbosacral facet joint (ICD-10 - M47.817) 11/24/2024 Lumbosacral radiculopathy (ICD-10 - M54.17) 11/07/2024 Lumbosacral radiculopathy (ICD-10 - M54.17) 10/17/2024 Lumbosacral radiculopathy (ICD-10 - M54.17) 11/07/2024 Herniated nucleus pulposus, L5-S1 (ICD-10 - M51.27) 10/17/2024 Herniated nucleus pulposus, L5-S1 (ICD-10 - M51.27) 11/24/2024 Herniated nucleus pulposus, L5-S1 (ICD-10 - M51.27) 10/17/2024 Other Plan:1. No UDS today. We will not pursue opioid therapy in this patient. 2. Continue physical therapy as benefit.3. Recommend to remain as active as possible.4. MRI lumbar spine reviewed showing L5-S1 right central disc protrusion moderately deforms the ventral thecal sac causing overall mild thecal sac stenosis with mild bilateral foraminal narrowing. Please see scanned documents for more details 5. Proceed with bilateral L5-S1 facet joint injection given history, physical exam findings per orthopedic spine surgery request.6. Patient to follow-up with orthopedic spine surgery after procedure.7. Return to clinic as needed 11/07/2024 Other Plan:1. We will not pursue opioid therapy in this patient. 2. Continue physical therapy as benefit.3. Recommend to remain as active as possible.4. MRI lumbar spine reviewed showing L5-S1 right central disc protrusion moderately deforms the ventral thecal sac causing overall mild thecal sac stenosis with mild bilateral foraminal narrowing. Please see scanned documents for more details 5. S/p bilateral L5-S1 facet joint injection without benefit unfortunately.6. Proceed with right L5 selective nerve root block. Originally was planned to do both right L5 and S1 selective nerve root block however during the procedure, patient did not tolerate the injection secondary to increased discomfort. We will abort the second level and schedule the S1 selective nerve root block on the right with sedation in 2 weeks. 7. Patient to follow-up with orthopedic spine surgery after procedure.8. Return to clinic in 2 weeks for right selective nerve root block with sedation 11/24/2024 Other Plan:1. We will not pursue opioid therapy in this patient. 2. Continue physical therapy as benefit.3. Recommend to remain as active as possible.4. MRI lumbar spine reviewed showing L5-S1 right central disc protrusion moderately deforms the ventral thecal sac causing overall mild thecal sac stenosis with mild bilateral foraminal narrowing. Please see scanned documents for more details 5. History of bilateral L5-S1 facet joint injection without benefit unfortunately.6. S/p right L5 selective nerve root block without benefit. Proceed with right S1 selective nerve root block on the right to see if better benefit. 7. Patient to follow-up with orthopedic spine surgery after procedure.8. Return to clinic as needed Plan Of Treatment No Information Medications Administered Medication Instructions Date of Administration Dosage Notes RIGHT L5 SNRI with fluoroscopy 05/05/2024 Medical (General) History Medical History History ICD Code Asthma Active smoker--< 1/2 PPD
--- NOTE | 2025-04-16 06:36 | ED.BACK ---
HPI - Back Pain/Injury General Chief Complaint: Back Pain/Injury Stated Complaint: back pain Time Seen by Provider: 04/16/25 05:51 History of Present Illness HPI Narrative: Patient is a 45-year-old male who presents emergency department this evening complaining of midline lower lumbar back pain radiating down his right leg. Patient states that he did some mild workout which precipitated the pain, nothing heavy. States that he does have chronic back pain and does follow-up with a spinal specialist. Has had an MRI of his lower back but states that he is due for 1 recently. Otherwise denies any additional symptoms or concerns including any bowel or bladder incontinence, focal weakness, numbness and tingling. Related Data Allergies Allergy/AdvReac Type Severity Reaction Status Date / Time No Known Allergies Allergy Verified 04/16/25 01:26 Review of Systems Review of Systems: All systems are reviewed and are negative unless stated otherwise in the HPI. Exam Narrative: General: Alert, awake, afebrile, in no acute distress. HEENT: PERRL, no rhinorrhea, no post nasal drip, oropharynx clear. Neck: Trachea midline, no JVD, no lymphadenopathy. Cardiovascular: Regular rate and rhythm, no murmurs, rubs or gallops, no peripheral edema. Respiratory: Clear to auscultation bilaterally, no tachypnea, no wheezing, no rhonchi, no rubs, no respiratory distress. Abdomen: Soft, nontender, nondistended, no rebound, no guarding, no peritoneal signs. Musculoskeletal: No joint swelling or deformity, normal muscle tone. Back: Tenderness palpation over the paraspinal lumbar region, no midline tenderness to palpation over the L-spine. Skin: No rashes or petechia, no signs of infection. Psychiatric: Alert and oriented, normal behavior and judgment for situation. Neurological: Alert and oriented to person, place, and time. Follows all commands. No focal deficits, speech is clear and fluent. Course Vital Signs Vital signs: Vital Signs Temperature 97.9 F 04/16/25 01:30 Pulse Rate 82 04/16/25 01:30 Respiratory Rate 16 04/16/25 01:30 Blood Pressure 148/97 H 04/16/25 01:30 Pulse Oximetry 99 04/16/25 01:30 Oxygen Delivery Room Air 04/16/25 01:30 Temperature 97.9 F 04/16/25 01:30 Pulse Rate 71 04/16/25 06:43 Respiratory Rate 18 04/16/25 06:43 Blood Pressure 133/78 04/16/25 06:43 Pulse Oximetry 100 04/16/25 06:43 Oxygen Delivery Room Air 04/16/25 01:30 MDM - Back Pain/Injury MDM Narrative Medical decision making narrative: The patient was evaluated by myself in the emergency department. History is obtained from patient who is an independent historian and physical exam was performed. External medical records were reviewed at this time. Patient was administered an oral Corwith 5-325 mg and a Lidoderm patch. Imaging studies obtained included CT lumbar spine without IV contrast which was independently interpreted by me revealing no acute process, which is pending final radiology interpretation. Differential diagnosis considerations include musculoskeletal strain, sciatica, herniated disc. Comorbidities impacting this visit include history of chronic back pain. I have evaluated and discussed social determinants of health with the patient that could potentially impact subsequent diagnosis and treatment plans. On repeat assessment of the patient, reevaluation revealed that the patient is doing well and is in no acute distress. Patient symptoms have improved since he arrived to our emergency department. Repeat vital signs were all reviewed and noted to be stable. Differential diagnosis and treatment plan were discussed with the patient at bedside. Patient agrees with discussion and after shared medical decision making agrees with discharge. All questions were answered to the patient's satisfaction. Patient will follow up with his spinal specialist in 3-5 days. Script for Lidoderm patches were sent to his pharmacy to use as needed for pain. Patient was provided with strict return precautions and instructed to return to the emergency department if any new or worsening symptoms develop. The patient was discharged in stable condition. Discharge Plan Discharge Clinical Impression: Strain of lumbar region Patient Disposition: Home Condition: Improved Instructions: Antibiotic Form, Lumbar Radiculopathy (ED) Additional Instructions: Please follow-up with a spinal specialist within the next 3-5 days. Your prescribed some Lidoderm patches to use as needed for pain. Return to the ED if any new or worsening symptoms develop. Patient Language: Maldivian Prescriptions: New lidocaine [Lidoderm] 5 % adhesive patch,medicated 1 patch topical DAILY Qty: 15 0RF Rx Instructions: leave on most painful area for up to 12 hrs No Action guaifenesin 200 mg tablet 200 mg PO QID PRN (Reason: congestion) Qty: 30 0RF albuterol sulfate 90 mcg/actuation HFA aerosol inhaler 2 puff inhalation QID PRN (Reason: shortness of breath or wheezing) Qty: 6.7 0RF hydrocodone-acetaminophen 5-325 mg tablet 1 tablet PO Q8H PRN (Reason: pain) Qty: 14 0RF ketorolac 10 mg tablet 10 mg PO Q8H PRN (Reason: pain) 5 Days Qty: 20 0RF Rx Instructions: maximum total duration of 5 days from all oral, intranasal, or parenteral formulations prednisone 50 mg tablet 50 mg PO DAILY 5 Days Qty: 5 0RF Follow-up/Referrals: PHYSICIAN NOT ON STAFF,NONSTAFF [Primary Care Provider] - 3 Days Time of Disposition: 06:37
[2025-04-16 06:43] VITALS: BP 133/78; PULSE 71; RESP 18; O2SAT 100
== END 2025-04-16 06:43 | disposition home or self-care (01) ==
PROVIDERS: Emergency Provider Emergency Medicine
DX: S39.012A Strain of muscle, fascia and tendon of lower back, initial encounter (principal); X50.0XXA Overexertion from strenuous movement or load, initial encounter
CPT/HCPCS: 72131; 99284; A9270